=== PATIENT | male | born 1985 | race Caucasian/White ===

== ENCOUNTER 2021-06-09 12:42 | Emergency (ER) | payer SELFPAY ==
[2021-06-09 13:11] LABS: Absolute Lymphocytes (CBC) 1.5 K/uL (0.7-4.9); Basophils % 0.5 % (0-1.3); Hematocrit 40.2 % (39.6-49.0); Lymphocytes % 27.6 % (15.3-44.8); MPV 8.5 fL (7.6-11.3); RBC Red Blood Cell Count 4.63 M/uL (4.33-5.43)
[2021-06-09 13:45] LABS: Urine Blood Negative (Negative); Urine Glucose Negative (Negative); Urine Protein 1+ (Negative); Urine Specific Gravity 1.025 (1.005-1.030)
[2021-06-09 14:17] LABS: Protime INR 1.14
[2021-06-09 14:22] LABS: Barbiturates NEGATIVE (NEGATIVE); Benzodiazepines POSITIVE (NEGATIVE); Cocaine NEGATIVE (NEGATIVE); METHAMPHETAM POSITIVE (NEGATIVE); Methadone NEGATIVE (NEGATIVE); Opiates NEGATIVE (NEGATIVE); Phencyclidine NEGATIVE (NEGATIVE); THC Cannibis POSITIVE (NEGATIVE)
[2021-06-09 14:30] LABS: ALT/SGPT 24 U/L (12-78); AST/SGOT 11 U/L (15-37); Albumin 4.1 g/dL (3.4-5.0); Alkaline Phosphatase 39 U/L (45-117); BUN Blood Urea Nitrogen 13 mg/dL (7-18); Bicarbonate 29 mmol/L (21-32); Bilirubin Direct 0.1 mg/dL (0-0.2); Bilirubin Total 0.5 mg/dL (0.2-1.0); Glucose Level 95 mg/dL (74-106); Potassium 3.9 mmol/L (3.5-5.1); Protein, Total 7.9 g/dL (6.4-8.2); Sodium Level 140 mmol/L (136-145)
[2021-06-09] MEDS ORDERED: NICOTINE 21 MG/PAT TD ONE (14:58)
--- NOTE | 2021-06-09 16:37 | ER ---
Nurse's Notes [facility] Name: Lamine Reese Age: 35 yrs Sex: Male : 1985 Arrival Date: 06/09/2021 Time: 12:46 Bed 18 Private MD: Diagnosis: Drug Abuse Presentation: 06/09 12:46 Chief complaint: EMS states: the patient was found unresponsive in a hotel after ap3 snorting of what he believed to be heroin.. Upon EMS arrival patients RR was 2. Patient was given Narcan, where he became A/O X's 4 with RR within normal limits. Coronavirus screen: At this time, the client does not indicate any symptoms associated with coronavirus-19. Ebola Screen: No symptoms or risks identified at this time. Initial Sepsis Screen: Does the patient meet any 2 criteria? No. Patient's initial sepsis screen is negative. Does the patient have a suspected source of infection? No. Patient's initial sepsis screen is negative. Risk Assessment: Do you want to hurt yourself or someone else? Patient reports no desire to harm self or others. Onset of symptoms was June 09, 2021. 12:46 Method Of Arrival: EMS: [facility] ap3 12:46 Acuity: DEA 2 ap3 Triage Assessment: 12:49 General: Appears slender. General: Behavior is anxious. Pain: Denies pain. Neuro: Level ap3 of Consciousness is awake, alert, obeys commands, Oriented to person, place, time, situation, Appropriate for age Auto Body Mechanic are equal bilaterally Gait is steady, Speech is normal, Facial symmetry appears normal. Cardiovascular: Patient's skin is warm and dry. Respiratory: Airway is patent Respiratory effort is even, unlabored, Respiratory pattern is regular, symmetrical. Historical: - Allergies: 12:48 Sulfa (Sulfonamide Antibiotics); ap3 - PMHx: 12:48 Hypertensive disorder; ap3 - Immunization history:: Adult Immunizations unknown, Client reports having NOT received the Covid vaccine. - Social history:: Smoking status: Patient reports the use of cigarette tobacco products, smokes one-half pack cigarettes per day, Patient uses alcohol, street drugs, IV drugs. Screenin:49 Abuse screen: Denies threats or abuse. Nutritional screening: No deficits noted. ap3 Tuberculosis screening: No symptoms or risk factors identified. Fall Risk No fall in past 12 months (0 pts). Secondary diagnosis (15 points) ingestion of unknown street drug. IV access (20 points). Ambulatory Aid- None/Bed Rest/Nurse Assist (0 pts). Gait- Impaired (20 pts.). Mental Status- Overestimates/Forgets Limitations (15 pts.). Total Avila Fall Scale indicates High Risk Score (45 or more points). Fall prevention measures have been instituted. Side Rails Up X 2 Placed Close to Nursing Station Frequent Obs/Assessments Occuring As available patient and family educated on Fall Prevention Program and Strategies. Assessment: 12:55 General: Appears unkempt, well developed, Behavior is cooperative, appropriate for age, sl2 drowsy, Reports heroin abuse. 12:55 Pain: Denies pain. Neuro: Level of Consciousness is awake, alert, obeys commands, sl2 stuporous, Oriented to person, place, time, situation, Appropriate for age Auto Body Mechanic are equal bilaterally Moves all extremities. Gait is unsteady, Speech is slurred, Facial symmetry appears normal, Pupils are constricted, Reports taking too much heroin . Denies weakness difficulty swallowing, paresthesias numbness headache photophobia. Cardiovascular: No deficits noted. Capillary refill < 3 seconds Rhythm is sinus rhythm. Respiratory: No deficits noted. Airway is patent Trachea midline Respiratory effort is Breath sounds are clear. GI: No deficits noted. No signs and/or symptoms were reported involving the gastrointestinal system. : No deficits noted. EENT: No deficits noted. No signs and/or symptoms were reported regarding the EENT system. Derm: No deficits noted. No signs and/or symptoms reported regarding the dermatologic system. Musculoskeletal: No deficits noted. No signs and/or symptoms reported regarding the musculoskeletal system. 14:45 Reassessment: Patient offered lunch tray - sitting up in bed eating meal - tolerating sl2 well. 16:39 Reassessment: PD at the patients bedside. ap3 Vital Signs: 12:46 BP 144 / 98; Pulse 80; Resp 16; Temp 98.8(O); Pulse Ox 100% on R/A; Weight 95.25 kg; ap3 Height 6 ft. 3 in. (190.50 cm); 14:04 BP 102 / 64; Pulse 84; Resp 18; Temp 98.8; Pulse Ox 97% on R/A; sl2 14:05 BP 100 / 64; Pulse 80; Resp 20; Temp 98.7; Pulse Ox 99% on R/A; sl2 14:30 BP 124 / 82; Pulse 78; Resp 16; Temp 98.2; Pulse Ox 98% on R/A; sl2 15:30 BP 118 / 71; Pulse 79; Resp 18; Temp 98.4; Pulse Ox 99% ; sl2 12:46 Body Mass Index 26.25 (95.25 kg, 190.50 cm) ap3 ED Course: 12:46 Patient arrived in ED. ap3 12:47 Eduardo Zavala PA is PHCP. [facility] 12:47 Rancho Avilez MD is Attending Physician. [facility] 12:48 Triage completed. ap3 12:50 Arm band placed on right wrist. ap3 12:50 Patient has correct armband on for positive identification. Bed in low position. Call ap3 light in reach. Side rails up X2. monitor car operator on. Pulse ox on. NIBP on. Door closed. Noise minimized. 12:55 No provider procedures requiring assistance completed. Maintain EMS IV. Dressing sl2 intact. Site clean \T\ dry. Left A/C # 20 inserted by EMS . 13:50 Shellie Calero, ANDRES is Primary Nurse. 2 13:51 Urine Drug Screen Sent. 2 14:05 Acetaminophen Sent. 5 14:05 Basic Metabolic Panel Sent. 5 14:05 ETOH Level Sent. 5 14:05 Hepatic Function Sent. 5 14:05 PT-INR Sent. 5 14:05 Ptt, Activated Sent. 5 14:05 Salicylate Sent. 5 14:05 Initial lab(s) drawn, by ca, sent to lab. Urine collected: straight cath specimen, 5 selena colored, EKG done, by ED staff, reviewed by Rancho Avilez MD. Maintain EMS IV. Dressing intact. Good blood return noted. Site clean \T\ dry. 16:45 IV discontinued, intact, bleeding controlled, No redness/swelling at site. Pressure ap3 dressing applied. Administered Medications: 14:02 Drug: Nicotine Patch 21 mg/24 hr 1 patches Route: Transdermal; Site: anterior chest sl2 wall; Outcome: 16:36 Discharge ordered by MD. taylor 16:45 Discharged to Law Enforcement ap3 16:45 Condition: good 16:45 Discharge instructions given to police, Instructed on discharge instructions, Demonstrated understanding of instructions. 16:46 Patient left the ED. ap3 Signatures: Eduardo Zavala PA PA jmm Martinez, [facility] Wilma Luu RN RN ap3 Shellie Calero RN RN sl2
--- NOTE | 2021-06-09 16:37 | EDPHYS ---
Physician Documentation [facility] Name: Lamine Reese Age: 35 yrs Sex: Male : 1985 Arrival Date: 06/09/2021 Time: 12:46 Bed 18 Private MD: ED Physician Rancho Avilez HPI: 06/09 13:06 This 35 yrs old Male presents to ER via EMS with complaints of Heroin jmm overdose. 13:06 The patient presents with decreased responsiveness. Onset: The symptoms/episode jmm began/occurred acutely, just prior to arrival. Possible causes: drug use, narcotics. Current symptoms: In the emergency department the patient's symptoms are unchanged from the initial presentation. It is unknown whether or not the patient has had similar symptoms in the past. Patient admits to taking heroin. Given two doses of narcan. . Historical: - Allergies: 12:48 Sulfa (Sulfonamide Antibiotics); ap3 - PMHx: 12:48 Hypertensive disorder; ap3 - Immunization history:: Adult Immunizations unknown, Client reports having NOT received the Covid vaccine. - Social history:: Smoking status: Patient reports the use of cigarette tobacco products, smokes one-half pack cigarettes per day, Patient uses alcohol, street drugs, IV drugs. ROS: 13:06 Constitutional: Negative for fever, chills, and weight loss, Cardiovascular: Negative jmm for chest pain, palpitations, and edema, Respiratory: Negative for shortness of breath, cough, wheezing, and pleuritic chest pain. 13:06 All other systems are negative. Exam: 13:06 Constitutional: This is a well developed, well nourished patient who is awake, alert, jmm and in no acute distress. Head/Face: atraumatic. Eyes: EOMI, no conjunctival erythema appreciated ENT: Moist Mucus Membranes Neck: Trachea midline, Supple Chest/axilla: Normal chest wall appearance and motion. Cardiovascular: Regular rate and rhythm. No edema appreciated Respiratory: Normal respirations, no respiratory distress appreciated Abdomen/GI: Non distended, soft Back: Normal ROM Skin: General appearance color normal MS/ Extremity: Moves all extremities, no obvious deformities appreciated, no edema noted to the lower extremities Neuro: Awake and alert, normal gait Psych: Behavior is normal, Mood is normal, Patient is cooperative and pleasant Vital Signs: 12:46 BP 144 / 98; Pulse 80; Resp 16; Temp 98.8(O); Pulse Ox 100% on R/A; Weight 95.25 kg; ap3 Height 6 ft. 3 in. (190.50 cm); 14:04 BP 102 / 64; Pulse 84; Resp 18; Temp 98.8; Pulse Ox 97% on R/A; sl2 14:05 BP 100 / 64; Pulse 80; Resp 20; Temp 98.7; Pulse Ox 99% on R/A; sl2 14:30 BP 124 / 82; Pulse 78; Resp 16; Temp 98.2; Pulse Ox 98% on R/A; sl2 15:30 BP 118 / 71; Pulse 79; Resp 18; Temp 98.4; Pulse Ox 99% ; sl2 12:46 Body Mass Index 26.25 (95.25 kg, 190.50 cm) ap3 MDM: 12:53 Patient medically screened. nhan 16:20 Data reviewed: vital signs, nurses notes. Counseling: I had a detailed discussion with sarahy the patient and/or guardian regarding: the historical points, exam findings, and any diagnostic results supporting the discharge/admit diagnosis, lab results, the need for outpatient follow up, to return to the emergency department if symptoms worsen or persist or if there are any questions or concerns that arise at home. 06/09 12:48 Order name: Acetaminophen; Complete Time: 14:32 [facility] 06/09 12:48 Order name: Basic Metabolic Panel; Complete Time: 14:32 [facility] 06/09 12:48 Order name: CBC with Diff; Complete Time: 13:18 [facility] 06/09 12:48 Order name: ETOH Level; Complete Time: 14:32 [facility] 06/09 12:48 Order name: Hepatic Function; Complete Time: 14:32 [facility] 06/09 12:48 Order name: PT-INR; Complete Time: 14:22 [facility] 06/09 12:48 Order name: Ptt, Activated; Complete Time: 14:22 [facility] 06/09 12:48 Order name: Salicylate; Complete Time: 15:18 [facility] 06/09 12:48 Order name: Urine Drug Screen; Complete Time: 14:23 [facility] 06/09 12:48 Order name: EKG; Complete Time: 12:49 [facility] 06/09 12:48 Order name: EKG - Nurse/Tech; Complete Time: 13:51 [facility] 06/09 12:48 Order name: IV Saline Lock; Complete Time: 14:03 [facility] 06/09 13:46 Order name: Urine Dipstick-Ancillary; Complete Time: 13:47 [facility] 06/09 12:48 Order name: Labs collected and sent; Complete Time: 14:03 [facility] 06/09 12:48 Order name: Suicide Screening ([place]); Complete Time: 16:45 [facility] 06/09 12:48 Order name: Urine Dipstick-Ancillary (obtain specimen); Complete Time: 14:04 [facility] 06/09 13:15 Order name: Labs - recollect needed: recollect 2 greens 1 blue and red tubes; Complete bd Time: 14:04 Administered Medications: 14:02 Drug: Nicotine Patch 21 mg/24 hr 1 patches Route: Transdermal; Site: anterior chest sl2 wall; Disposition: 23:14 Co-signature as Attending Physician, Rnacho Avilez MD I agree with the assessment and nhan plan of care. Disposition Summary: 06/09/21 16:36 Discharge Ordered Location: Home [facility] Condition: Stable jm Diagnosis - Drug Abuse [facility] Followup: m - With: Private Physician - When: 2 - 3 days - Reason: Recheck today's complaints, Continuance of care, Re-evaluation by your physician Discharge Instructions: - Discharge Summary Sheet jm - Methamphetamines Use Disorder [facility] Forms: - Medication Reconciliation Form [facility] - Thank You Letter jm - Antibiotic Education jm - Prescription Opioid Use [facility] Signatures: Dispatcher [employer] Arely Lim Corey, MD MD cha Mickail, Joel, PA PA Wilma Curry, RN RN ap3 Shellie Calero RN RN sl2
[2021-06-09 16:57] VITALS: BP 118/71; TEMP 98.4; O2SAT 99
--- NOTE | 2021-06-10 13:13 | EKG ---
Test Date: 2021-06-09 Test Time: 13:47:24 Senior Security Engineer: HEATHER MEASUREMENT RESULTS: Intervals: Rate: 68 CO: 154 QRSD: 98 QT: 406 QTc: 431 Wh[place]: P: 51 CO: 154 QRS: 62 T: 68 INTERPRETIVE STATEMENTS: Normal sinus rhythm Normal ECG Compared to ECG 05/20/2015 04:02:23 Sinus tachycardia no longer present Electronically Signed On 06-10-21 13:10:34 CDT by Donnie Aviles
== END 2021-06-09 16:46 | disposition home or self-care (01) ==
LOC: ER 12:42
DX: T40.1X1A Poisoning by heroin, accidental (unintentional), initial encounter (principal); I10 Essential (primary) hypertension; F17.210 Nicotine dependence, cigarettes, uncomplicated; Z88.2 Allergy status to sulfonamides
CPT/HCPCS: 36415; 80048; 80076; 80307; 80320; 80329; 81003; 85025; 85610; 85730; 93005; 99284

== ENCOUNTER 2021-11-21 09:10 | Emergency (ER) | payer SELFPAY ==
--- NOTE | 2021-11-21 09:48 | RAD REPORT ---
EXAM DESCRIPTION: CT - Head Brain Wo Cont - 11/21/2021 9:36 am CLINICAL HISTORY: Facial trauma, blunt COMPARISON: Facial Bones W/ Mpr dated 11/21/2021 TECHNIQUE: All CT scans are performed using dose optimization technique as appropriate and may inclu de automated exposure control or mA/KV adjustment according to patient size. FINDINGS: No intracranial hemorrhage, hydrocephalus or extra-axial fluid collection.No areas of brai n edema or evidence of midline shift. The paranasal sinuses and mastoids are clear. The calvarium is intact. IMPRESSION: No acute intracranial abnormality.
--- NOTE | 2021-11-21 09:50 | RAD REPORT ---
EXAM DESCRIPTION: CT - CTFB CLINICAL HISTORY: Facial trauma, blunt COMPARISON: No comparisons TECHNIQUE: Axial 2 mm thick images of the face were obtained with sagittal and coronal reconstructio n images. All CT scans are performed using dose optimization technique as appropriate and may include automated exposure control or mA/KV adjustment according to patient size. FINDINGS: No acute facial bone fracture is seen.The mandible is intact. Remote medial orbital wall fracture. No acute orbital wall fracture. .The paranasal sinuses and masto ids are clear. IMPRESSION: Negative for facial bone fracture.
--- NOTE | 2021-11-21 09:54 | RAD REPORT ---
EXAM DESCRIPTION: RAD - Hand Right 3 View - 11/21/2021 9:48 am CLINICAL HISTORY: PAIN COMPARISON: No comparisons FINDINGS/IMPRESSION: Nondisplaced longitudinally oriented fracture of the fifth proximal phalanx. Po ssible intra-articular extension to the fifth MCP joint. Soft tissue swelling is present.
--- NOTE | 2021-11-21 09:59 | RAD REPORT ---
EXAM DESCRIPTION: RAD - Ankle Right 3 View - 11/21/2021 9:49 am CLINICAL HISTORY: PAIN COMPARISON: No comparisons FINDINGS/IMPRESSION: No acute fracture. No malalignment. No significant focal degenerative changes.
[2021-11-21] MEDS ORDERED: IBUPROFEN 400 MG TAB ONE (10:13)
[2021-11-21] MEDS ORDERED: IBUPROFEN 200 MG TAB PO ONE (10:13)
--- NOTE | 2021-11-21 11:09 | ER ---
Nurse's Notes [facility] Name: Lamine Reese Age: 36 yrs Sex: Male : 1985 Arrival Date: 11/21/2021 Time: 09:12 Bed 5 Private MD: Diagnosis: Nondisplaced fracture of proximal phalanx of right little finger, initial encounter for closed fracture;Contusion of other part of head;Pain in right ankle and joints of right foot Presentation: 11/21 09:13 Chief complaint: Patient states: pt presented to ED reporting banging head in [facility] sanchez cell, right hand injury/swollen from pushing [facility] cell and pt reported rolling right ankle. Coronavirus screen: Vaccine status: Patient reports receiving the 2nd dose of the covid vaccine. Ebola Screen: Patient denies travel to an Ebola-affected area in the 21 days before illness onset. Mechanism of Injury: resulted from banging head on [facility] cell wall and pushing [facility] cell wall. Initial Sepsis Screen: Does the patient meet any 2 criteria? No. Patient's initial sepsis screen is negative. Does the patient have a suspected source of infection? Yes:. Risk Assessment: Do you want to hurt yourself or someone else? Patient reports no desire to harm self or others. 09:13 Method Of Arrival: Law Enforcement: [facility] 09:13 Acuity: DEA 3 sanchez 09:22 Onset of symptoms was November 21, 2021. sanchez Triage Assessment: 09:19 General: Appears uncomfortable, Behavior is agitated, uncooperative. Pain: Complains of sanchez pain in frontal head, right hand and right ankle pain. Neuro: Level of Consciousness is awake, alert, Oriented to person, place, time, situation, Reports headache frontal area. Historical: - Allergies: 09:19 Sulfa (Sulfonamide Antibiotics); sanchez - PMHx: 09:19 Hypertensive disorder; sanchez - Immunization history:: Adult Immunizations up to date. - Social history:: Smoking status: Patient reports the use of cigarette tobacco products, Patient uses street drugs, marijuana. Screenin:20 Abuse screen: Denies threats or abuse. Denies injuries from another. Nutritional sanchez screening: No deficits noted. Tuberculosis screening: No symptoms or risk factors identified. Fall Risk None identified. Assessment: 11:35 General: Appears in no apparent distress. Behavior is calm, cooperative. Pain: sanchez Complains of pain in face, right hand and right ankle. Vital Signs: 09:13 BP 159 / 90; Pulse 88; Resp 18; Temp 97.6(T); Pulse Ox 100% on R/A; Weight 106.59 kg; sanchez Height 6 ft. 3 in. (190.50 cm); 09:13 Body Mass Index 29.37 (106.59 kg, 190.50 cm) sanchez Abiel Coma Score: 09:13 Eye Response: spontaneous(4). Verbal Response: oriented(5). Motor Response: obeys sanchez commands(6). Total: 15. ED Course: 09:12 Patient arrived in ED. sanchez 09:13 Sherif Carpenter NP is PHCP. pm1 09:13 Rancho Avilez MD is Attending Physician. pm1 09:18 Triage completed. sanchez 09:19 Arm band placed on. sanchez 09:20 Patient has correct armband on for positive identification. [employer]. sanchez 09:20 No provider procedures requiring assistance completed. sanchez 09:38 CT Head Brain wo Cont In Process Unspecified. EDMS 09:39 CT Facial Bones W/O Con In Process Unspecified. EDMS 09:50 Hand Right 3 View XRAY In Process Unspecified. EDMS 09:50 Ankle Right 3 View XRAY In Process Unspecified. EDMS 09:50 Foot Right 3 View XRAY In Process Unspecified. EDMS 10:08 Anel Nickerson RN is Primary Nurse. sanchez 11:08 Luis M Alvarez MD is Referral Physician. pm1 11:37 Patient did not have IV access during this emergency room visit. sacnhez Administered Medications: 10:11 Drug: Ibuprofen 600 mg Route: PO; sanchez 10:11 Follow up: Response: No adverse reaction sanchez Outcome: 11:09 Discharge ordered by . pm1 11:37 Discharged to Law Enforcement sanchez 11:37 Condition: good 11:37 Discharge instructions given to police. 11:38 Patient left the ED. sanchez Signatures: Dispatcher [employer] EDSherif Bosch NP HOSPITAL CLERK pm1 Anel Nickerson RN RN sanchez
--- NOTE | 2021-11-21 11:09 | EDPHYS ---
Physician Documentation [facility] Name: Lamine Reese Age: 36 yrs Sex: Male : 1985 Arrival Date: 11/21/2021 Time: 09:12 Bed 5 Private MD: ED Physician Rancho Avilez HPI: 11/21 09:38 This 36 yrs old Male presents to ER via Law Enforcement with complaints of Hand Pain, pm1 Head Injury-Adult, Ankle Injury. 09:38 Trauma demographics: Location of Injury: The injury occurred in his assisted cell, Date: pm1 November 21, 2021. Mechanism of injury: self inflicted. Onset: The symptoms/episode began/occurred today. Associated signs and symptoms: Pertinent negatives: LOC, neck pain. The patient has not experienced similar symptoms in the past. The patient has not recently seen a physician. Historical: - Allergies: 09:19 Sulfa (Sulfonamide Antibiotics); sanchez - PMHx: 09:19 Hypertensive disorder; sanchez - Immunization history:: Adult Immunizations up to date. - Social history:: Smoking status: Patient reports the use of cigarette tobacco products, Patient uses street drugs, marijuana. ROS: 09:38 Constitutional: Negative for fever, chills, and weight loss, Cardiovascular: Negative pm1 for chest pain, palpitations, and edema, Respiratory: Negative for shortness of breath, cough, wheezing, and pleuritic chest pain. 09:38 Skin: Negative for injury, rash, and discoloration, Neuro: Negative for headache, weakness, numbness, tingling, and seizure. 09:38 MS/extremity: Positive for pain, of the right hand, right ankle and right foot. 09:38 All other systems are negative. Exam: 09:38 Constitutional: This is a well developed, well nourished patient who is awake, alert, pm1 and in no acute distress. Head/Face: Normocephalic, atraumatic. 09:38 Cardiovascular: Exam negative for acute changes, Rate: normal, Rhythm: regular, Pulses: no pulse deficits are appreciated. 09:38 Respiratory: Exam negative for acute changes, respiratory distress, shortness of breath. 09:38 Musculoskeletal/extremity: Extremities: grossly normal except: noted in the right little finger and dorsum of right hand: swelling, tenderness, noted in the right ankle and dorsum of right foot: tenderness, swelling to lateral aspect of right ankle, no evidence of decreased ROM, deformity, ROM: no acute changes, Circulation is intact in all extremities. 09:38 Skin: Exam negative for laceration, puncture wound, Appearance: swelling, noted on the right hand and lateral aspect of right ankle, that are mild. 09:38 Neuro: Exam negative for acute changes, Orientation: is normal, Mentation: is normal, Gait: is steady, at a normal pace, without difficulty. Vital Signs: 09:13 BP 159 / 90; Pulse 88; Resp 18; Temp 97.6(T); Pulse Ox 100% on R/A; Weight 106.59 kg; sanchez Height 6 ft. 3 in. (190.50 cm); 09:13 Body Mass Index 29.37 (106.59 kg, 190.50 cm) sanchez Abiel Coma Score: 09:13 Eye Response: spontaneous(4). Verbal Response: oriented(5). Motor Response: obeys sanchez commands(6). Total: 15. MDM: 09:13 Patient medically screened. pm1 11:07 Data reviewed: vital signs. Data interpreted: Pulse oximetry: on room air is 100 %. pm1 Interpretation: normal. Counseling: I had a detailed discussion with the patient and/or guardian regarding: the historical points, exam findings, and any diagnostic results supporting the discharge/admit diagnosis, radiology results, the need for outpatient follow up, to return to the emergency department if symptoms worsen or persist or if there are any questions or concerns that arise at home. 11/21 09:14 Order name: CT Head Brain wo Cont; Complete Time: 10:15 pm1 11/21 09:15 Order name: Hand Right 3 View XRAY; Complete Time: 10:15 pm1 11/21 09:15 Order name: Ankle Right 3 View XRAY; Complete Time: 10:15 pm1 11/21 09:15 Order name: Foot Right 3 View XRAY; Complete Time: 10:15 pm11/21 09:21 Order name: CT Facial Bones W/O Con; Complete Time: 10:15 pm1 11/21 10:18 Order name: Ulnar Gutter splint; Complete Time: 11:06 pm1 11/21 11:32 Order name: Azam wrap-joint pm1 Administered Medications: 10:11 Drug: Ibuprofen 600 mg Route: PO; sanchez 10:11 Follow up: Response: No adverse reaction sanchez Disposition Summary: 11/21/21 11:09 Discharge Ordered Location: Home pm1 Problem: new pm1 Symptoms: have improved pm1 Condition: Stable pm1 Diagnosis - Nondisplaced fracture of proximal phalanx of right little finger, initial encounter pm1 for closed fracture - Contusion of other part of head pm1 - Pain in right ankle and joints of right foot pm1 Followup: pm1 - With: Emergency Department - When: As needed - Reason: Worsening of condition Followup: pm1 - With: Private Physician - When: 2 - 3 days - Reason: Recheck today's complaints, Continuance of care, Re-evaluation by your physician Followup: pm1 - With: Luis M Alvarez MD - When: 2 - 3 days - Reason: Recheck today's complaints, Continuance of care, Re-evaluation by your physician Discharge Instructions: - Discharge Summary Sheet pm1 - Contusion pm1 - Cast or Splint Care, Adult pm1 - Finger Fracture, Adult pm1 - Foot Sprain pm1 - Ankle Pain pm1 Forms: - Medication Reconciliation Form pm1 - Thank You Letter pm1 - Antibiotic Education pm1 - Prescription Opioid Use pm1 Prescriptions: - Diclofenac Sodium 75 mg Oral tablet,delayed release (DR/EC) - take 1 tablet by ORAL route 2 times per day As needed; 30 tablet; Refills: 0, pm1 Product Selection Permitted Signatures: Dispatcher [employer] Sherif Mejias NP AGILE DEVELOPER pm1 Sylvia-Anel Schmidt RN RN sanchez
[2021-11-21 11:47] VITALS: BP 159/90; TEMP 97.6; O2SAT 100
== END 2021-11-21 11:38 | disposition home or self-care (01) ==
LOC: ER 09:10
PROC: 2W3CX1Z Immobilization of Right Lower Arm using Splint (ICD-10-PCS; principal; 2021-11-21)
DX: S62.646A Nondisplaced fracture of proximal phalanx of right little finger, initial encounter for closed fracture (principal); S00.83XA Contusion of other part of head, initial encounter; M25.571 Pain in right ankle and joints of right foot; I10 Essential (primary) hypertension; Z72.0 Tobacco use; Z88.2 Allergy status to sulfonamides
CPT/HCPCS: 70450; 70486; 76377; 99283

== ENCOUNTER 2022-06-04 11:56 | Inpatient (IN) | payer SELFPAY ==
[2022-06-04] MEDS ORDERED: FUROSEMIDE 40 MG/4 ML VIAL ONE (12:22)
[2022-06-04 12:38] LABS: Absolute Lymphocytes (CBC) 1.7 K/uL (0.7-4.9); Hematocrit 40.8 % (39.6-49.0); Lymphocytes % 27.1 % (15.3-44.8); MCV 86.8 fL (80-100)
[2022-06-04 12:45] LABS: Potassium 3.5 mmol/L (3.5-5.1); Troponin High Sensitivity 38.4 pg/mL (<58.9)
--- NOTE | 2022-06-04 12:54 | RAD REPORT ---
EXAM DESCRIPTION: [place] Single View06/04/2022 12:29 pm CLINICAL HISTORY: Cough COMPARISON: none FINDINGS: The lungs appear clear of acute infiltrate. The heart is normal size IMPRESSION: No acute abnormalities displayed
--- NOTE | 2022-06-04 13:04 | EDPHYS ---
Physician Documentation [facility] Name: Lamine Reese Age: 36 yrs Sex: Male : 1985 Arrival Date: 06/04/2022 Time: 11:58 Bed 4 Private MD: ED Physician Adrian Keith HPI: 06/04 13:05 This 36 yrs old Male presents to ER via EMS with complaints of Drug Abuse, Accidental ms3 Overdose. 13:05 The patient presents to the emergency department after a known overdose, that was ms3 accidental, a result of recreational substance abuse. Context: Method: it is confirmed or suspected that the patient injected a substance, heroin, Time: just prior to arrival, Extent: Heroin, the OD/poisoning occurred at at home, and was witnessed by a friend, Previous OD/poisoning history: yes. Associated signs and symptoms: The patient has no apparent associated signs or symptoms. Severity of symptoms: At their worst the symptoms were severe in the emergency department the symptoms have resolved. 36-year-old male with past medical history of hypertension presents via [facility] for heroin overdose. EMS administered 0.5 mg Narcan in the field. EMS notes patient to have pink sputum he continues to cough up.. Historical: - Allergies: 12:13 Sulfa (Sulfonamide Antibiotics); ap3 - Home Meds: 12:13 None [Active]; ap3 - PMHx: 12:13 Hypertensive disorder; ap3 - Immunization history:: Client reports having NOT received the Covid vaccine. - Social history:: Smoking status: Patient denies any tobacco usage or history of. Patient uses IV drugs, heroin. ROS: 13:05 Constitutional: Negative for fever, and chills. ENT: Negative for injury, pain, and ms3 discharge, Neck: Negative for injury, pain, and swelling, Cardiovascular: Negative for chest pain, and palpitations. 13:05 Abdomen/GI: Negative for abdominal pain, nausea, vomiting, diarrhea, and constipation, MS/Extremity: Negative for injury and deformity, Skin: Negative for injury, rash, and discoloration, Neuro: Negative for headache, weakness, numbness, tingling. 13:05 Respiratory: Positive for cough. 13:05 All other systems are negative. Exam: 12:15 ECG was reviewed by the Attending Physician. ms3 13:05 Constitutional: This is a well developed, well nourished patient who is awake, alert, ms3 and in no acute distress. Head/Face: Normocephalic, atraumatic. Chest/axilla: Normal chest wall appearance and motion. Nontender with no deformity. Cardiovascular: Regular rate and rhythm with a normal S1 and S2. No gallops, murmurs, or rubs. Normal PMI, no JVD. No pulse deficits. 13:05 Abdomen/GI: Soft, non-tender, with normal bowel sounds. No distension or tympany. No guarding or rebound. No evidence of tenderness throughout. Skin: Warm, dry with normal turgor. Normal color with no rashes, no lesions, and no evidence of cellulitis. MS/ Extremity: Pulses equal, no cyanosis. Neurovascular intact. Full, normal range of motion. 13:05 Respiratory: mild respiratory distress is noted, Respirations: normal, Breath sounds: rales, that are mild, are scattered. Vital Signs: 11:57 BP 133 / 87; Pulse 92; Resp 12; Temp 97.8; Pulse Ox 97% on 2 lpm NC; Weight 86.18 kg; ap3 Height 5 ft. 11 in. (180.34 cm); Pain 5/10; 12:20 BP 124 / 83; Pulse 87; Resp 12; Pulse Ox 99% on 4 lpm NC; vg1 13:08 BP 133 / 83; Pulse 98; Resp 10; Pulse Ox 98% on BiPAP; ap3 14:17 BP 129 / 93; Pulse 98; Resp 16; Pulse Ox 96% on BiPAP; vg1 11:57 Body Mass Index 26.50 (86.18 kg, 180.34 cm) ap3 MDM: 11:58 Patient medically screened. ms3 13:05 Differential diagnosis: Ingestion/exposure to Heroin hypoglycemia, Pulmonary edema. ms3 Data reviewed: vital signs, nurses notes, lab test result(s), EKG, radiologic studies, and as a result, I will admit patient. Data interpreted: monitoring specialist: rate is 90 beats/min, rhythm is normal sinus rhythm, with no ectopy, Interpretation: normal rate, normal rhythm. Counseling: I had a detailed discussion with the patient and/or guardian regarding: the historical points, exam findings, and any diagnostic results supporting the discharge/admit diagnosis, lab results, radiology results, the need for further work-up and treatment in the hospital. ED course: Discussed case with Dr. Rollins and he accepts patient. All questions were answered. Discussed plan for admission with patient and he understands and agrees with plan. 06/04 12:00 Order name: Basic Metabolic Panel; Complete Time: 12:56 ms3 06/04 12:00 Order name: CBC with Diff; Complete Time: 12:56 ms3 06/04 12:00 Order name: NT PRO-BNP; Complete Time: 12:56 ms3 06/04 12:00 Order name: Troponin HS; Complete Time: 12:56 ms3 06/04 12:43 Order name: SARS RAPID; Complete Time: 13:34 ap3 06/04 15:04 Order name: CBC with Automated Diff EDMS 06/04 12:00 Order name: XRAY Chest (1 view); Complete Time: 12:56 ms3 06/04 12:27 Order name: BIPAP ms3 06/04 15:04 Order name: CBC with Automated Diff EDMS 06/04 15:04 Order name: Comprehensive Metabolic Panel EDMS 06/04 15:04 Order name: Comprehensive Metabolic Panel EDMS 06/04 15:04 Order name: Magnesium EDMS 06/04 15:04 Order name: Magnesium EDMS 06/04 15:04 Order name: Chest Single View EDMS 06/04 12:00 Order name: EKG; Complete Time: 12:01 ms3 06/04 12:00 Order name: Cardiac monitoring; Complete Time: 12:19 ms3 06/04 12:00 Order name: EKG - Nurse/Tech; Complete Time: 12:19 ms3 06/04 12:00 Order name: IV Saline Lock; Complete Time: 12:19 ms3 06/04 12:00 Order name: Labs collected and sent; Complete Time: 12:19 ms3 06/04 12:00 Order name: O2 Per Protocol; Complete Time: 12:19 ms3 06/04 12:00 Order name: O2 Sat Monitoring; Complete Time: 12:19 ms3 06/04 15:04 Order name: Full Liquid EDMS 06/04 15:04 Order name: Chest Single View EDMS 06/04 15:11 Order name: Chest Single View; Complete Time: 18:20 EDMS EC:15 Rate is 84 beats/min. Rhythm is regular. QRS [place] is Normal. MT interval is normal. QRS ms3 interval is normal. Clinical impression: Normal ECG. Interpreted by me. Reviewed by me. Administered Medications: 12:26 Drug: Lasix (furosemide) 40 mg Route: IVP; Site: right antecubital; ap3 13:06 Follow up: Response: No adverse reaction ap3 Disposition Summary: 06/04/22 13:03 Hospitalization Ordered Hospitalization Status: Inpatient Admission ms3 Provider: Ruslan Rollins ms3 Condition: Stable ms3 Problem: new ms3 Symptoms: are unchanged ms3 Bed/Room Type: Standard ms3 Location: Telemetry/MedSurg (Inpatient)(06/04/22 22:33) cg Room Assignment: [facility](06/04/22 22:33) Diagnosis - Heroin overdose ms3 - Acute pulmonary edema ms3 - Acute respiratory failure ms3 Forms: - Medication Reconciliation Form ms3 - SBAR form ms3 Critical care time excluding procedures: 14:01 Critical care time: Bedside Care: 45 minutes. Total time: 45 minutes ms3 Signatures: Dispatcher [employer] Delmis Rios, RN RN cg Wilma Luu RN RN ap3 Karime Baptiste Marcus, DO DO ms3 Corrections: (The following items were deleted from the chart) 13:45 13:03 Intensive Care Unit ms3 eb 13:45 13:03 ms3 eb 13:45 13:45 [facility] ER HOLD eb eb 13:45 13:45 ERHOLD- eb eb 15:04 13:45 Intensive Care Unit eb eb 15:04 13:45 eb eb 22:33 15:04 [facility] ER HOLD eb cg 22:33 15:04 ERHOLD- eb cg
--- NOTE | 2022-06-04 13:04 | ER ---
Nurse's Notes [facility] Name: Lamine Reese Age: 36 yrs Sex: Male : 1985 Arrival Date: 06/04/2022 Time: 11:58 Bed 4 Private MD: Diagnosis: Heroin overdose;Acute pulmonary edema;Acute respiratory failure Presentation: 06/04 11:57 Chief complaint: EMS states: they were called out to a witnessed heroin overdose where ap3 the patient went unconscious and turned blue. EMS administered 0.5mg Narcan on scene and patient became responsive at that time and removed his IV. Patient complains of mild chest discomfort and left upper quadrant abdominal pain. Coronavirus screen: At this time, the client does not indicate any symptoms associated with coronavirus-19. Ebola Screen: No symptoms or risks identified at this time. Initial Sepsis Screen: Does the patient meet any 2 criteria? No. Patient's initial sepsis screen is negative. Does the patient have a suspected source of infection? No. Patient's initial sepsis screen is negative. Risk Assessment: Do you want to hurt yourself or someone else? Patient reports no desire to harm self or others. Onset of symptoms was June 04, 2022 at 11:30. Care prior to arrival: Medication(s) given: 0.5 Narcan IV IV initiated. 22 GA, in the right wrist, patient removed [employer]UM[employer] MGR. 11:57 Method Of Arrival: EMS: [facility] ap3 11:57 Acuity: DEA 2 ap3 Triage Assessment: 12:13 General: Appears distressed, Behavior is calm, cooperative. Pain: Complains of pain in ap3 chest and left upper quadrant. Neuro: Jacobson Agitation-Sedation Scale (RASS): -1 Drowsy Level of Consciousness is awake, Oriented to person, place, time, situation. Cardiovascular: Patient's skin is warm and dry. Respiratory: Airway is patent Respiratory effort is even, unlabored. Historical: - Allergies: 12:13 Sulfa (Sulfonamide Antibiotics); ap3 - Home Meds: 12:13 None [Active]; ap3 - PMHx: 12:13 Hypertensive disorder; ap3 - Immunization history:: Client reports having NOT received the Covid vaccine. - Social history:: Smoking status: Patient denies any tobacco usage or history of. Patient uses IV drugs, heroin. Screenin:14 Abuse screen: Denies threats or abuse. Nutritional screening: No deficits noted. ap3 Tuberculosis screening: No symptoms or risk factors identified. 12:23 Fall Risk No fall in past 12 months (0 pts). No secondary diagnosis (0 pts). IV access vg1 (20 points). Ambulatory Aid- None/Bed Rest/Nurse Assist (0 pts). Gait- Weak (10 pts.). Mental Status- Oriented to own ability (0 pts). Total Avila Fall Scale indicates Low Risk Score (25-44 pts). Fall prevention measures have been instituted. Side Rails Up X 2 Placed close to Nursing Station As available Patient and Family Educated on Fall Prevention Program and strategies. Assessment: 12:00 General: Appears uncomfortable, Behavior is cooperative. Pain: Complains of pain in vg1 left upper quadrant Pain currently is 5 out of 10 on a pain scale. Neuro: Level of Consciousness is awake, alert, obeys commands, Oriented to person, place, time, situation. Cardiovascular: Heart tones S1 S2 Capillary refill < 3 seconds in bilateral fingers Rhythm is regular. Respiratory: Airway is patent Respiratory effort is even, unlabored, Sputum is blood streaked. GI: Patient currently denies nausea, vomiting. : No signs and/or symptoms were reported regarding the genitourinary system. EENT: No signs and/or symptoms were reported regarding the EENT system. Derm: Skin is diaphoretic, Skin is pink. Musculoskeletal: Circulation, motion, and sensation intact. 12:00 Reassessment: Pt stated would like help for drug abuse; provider notified. vg1 12:21 Reassessment: Respiratory at bedside. vg1 12:29 Respiratory: Patient placed on BiPAP: Inspiratory Pressure: 12 Expiratory (EPAP) vg1 Pressure: 5 FiO2%: 40 Respiratory Rate: 16. 13:08 Reassessment: Patient and/or family updated on plan of care and expected duration. Pain ap3 level reassessed. Patient is alert, oriented x 3, equal unlabored respirations, skin warm/dry/pink. provider at bedside discussing current plan of care. patient verbalized understanding at this time. 14:17 Reassessment: Patient appears in no apparent distress at this time. No changes from vg1 previously documented assessment. Patient is alert, oriented x 3, equal unlabored respirations, skin warm/dry/pink. Patient denies pain at this time. 15:52 Reassessment: No changes from previously documented assessment. Patient and/or family ap3 updated on plan of care and expected duration. Pain level reassessed. Patient is alert, oriented x 3, equal unlabored respirations, skin warm/dry/pink. pt awake and asking for water. 19:35 General: Behavior is agitated, Patient requested something to drink. Water brought to tw5 the patient. Patient stated " What the fuck is this, just a cup of water, I am fucking hot in here. Seriously what the fuck is this." Nursing staff asked patient to speak more kindly and what else he would like. Soda with ice brought to patient. 20:21 General: patient provided sandwich. tw5 Vital Signs: 11:57 BP 133 / 87; Pulse 92; Resp 12; Temp 97.8; Pulse Ox 97% on 2 lpm NC; Weight 86.18 kg; ap3 Height 5 ft. 11 in. (180.34 cm); Pain 5/10; 12:20 BP 124 / 83; Pulse 87; Resp 12; Pulse Ox 99% on 4 lpm NC; vg1 13:08 BP 133 / 83; Pulse 98; Resp 10; Pulse Ox 98% on BiPAP; ap3 14:17 BP 129 / 93; Pulse 98; Resp 16; Pulse Ox 96% on BiPAP; vg1 11:57 Body Mass Index 26.50 (86.18 kg, 180.34 cm) ap3 ED Course: 11:58 Patient arrived in ED. ms3 11:59 Radha Sam RN is Primary Nurse. vg1 11:59 Adrian Keith DO is Attending Physician. ms3 12:13 Triage completed. ap3 12:23 Arm band placed on. vg1 12:23 Patient has correct armband on for positive identification. Bed in low position. Call vg1 light in reach. Side rails up X2. Client placed on continuous cardiac and pulse oximetry monitoring. NIBP monitoring applied. 12:23 Inserted saline lock: 20 gauge in right antecubital area, using aseptic technique. vg1 ,using aseptic technique. completed by Wilma CAMPOS. 12:31 XRAY Chest (1 view) In Process Unspecified. EDMS 13:02 Ruslan Rollins MD is Hospitalizing Provider. ms3 13:06 SARS RAPID Sent. ap3 16:27 No provider procedures requiring assistance completed. Patient admitted, IV remains in ap3 place. 20:35 Primary Nurse role handed off by Radha Sam RN mw2 22:14 Rafia Payton is Primary Nurse. tw5 Administered Medications: 12:26 Drug: Lasix (furosemide) 40 mg Route: IVP; Site: right antecubital; ap3 13:06 Follow up: Response: No adverse reaction ap3 Medication: 12:24 VIS not applicable for this client. vg1 Outcome: 13:03 Decision to Hospitalize by Provider. ms3 16:27 Admitted to ER Hold. Please see [facility] for further documentation. ap3 16:27 Condition: good 16:27 Instructed on the need for admit. 22:14 Admitted to Med/surg room 214, Report called to attempted to call report to ayala tw5 22:32 Admitted to Med/surg accompanied by nurse, accompanied by tech, with chart, Report tw5 called to Report called to Ayala. Patient transported in hospital bed. 22:40 Patient left the ED. as6 Signatures: Dispatcher [employer] EDMS Wilma Luu, RN RN ap3 Humphrey Garcia mw2 Radha Sam, RN RN vg1 Adrian Keith, DO ms3 Rafia Payton tw5 Sameer Luo RN RN as6 Corrections: (The following items were deleted from the chart) 13:08 13:08 BP 133 / 83; Pulse 105bpm; Resp 10bpm; Pulse Ox 98% BiPAP; ap3 ap3
[2022-06-04 13:21] LABS: SARS-CoV-2 Antigen Rapid Res Negative (Negative)
[2022-06-04] MEDS ORDERED: ONDANSETRON 4 MG/2 ML VIAL IV PRN (14:59)
[2022-06-04] MEDS ORDERED: ACETAMINOPHEN 500 MG TAB PO PRN (14:59)
[2022-06-04] MEDS ORDERED: LORazepam 2 MG/ML VIAL IV PRN (15:12)
[2022-06-04 16:07] VITALS: BMI 33.5
--- NOTE | 2022-06-04 18:11 | RAD REPORT ---
EXAM DESCRIPTION: RAD - Chest Single View - 06/04/2022 6:02 pm CLINICAL HISTORY: f/u pulm edema COMPARISON: Chest Single View dated 06/04/2022 FINDINGS: Lines: None. Lungs: No evidence of edema or pneumonia. Pleural: No significant pleural effusions or pneumothorax. Cardiac: The heart size is within normal limits. Mediastinum: Within normal limits. Bones: No acute fractures. Other: None IMPRESSION: No acute cardiopulmonary disease.
--- NOTE | 2022-06-04 20:35 | P.HP ---
Certification for Inpatient Patient admitted to: Observation With expected LOS: <2 Midnights Practitioner: I am a practitioner with admitting privileges, knowledge of patient current condition, hospital course, and medical plan of care. Services: Services provided to patient in accordance with Admission requirements found in Title 42 Section 412.3 of the Code of Federal Regulations Patient History Date of Service: 06/04/22 Reason for admission: heroin overdose, respiratory failure History of Present Illness: 36yo M, PMH: HTN Brought to ED by EMS after witness overdose with heroin. Patient reportedly became unconscious and turned blue. EMS administered 0.5mg Narcan on scene and patient became responsive, removed IV. In the ED, patient reported LUQ abd pain. He was noted to be coughing with frothy blood tinged sputum. He was placed on BIPAP for concern of acute pulmonary edema following naracan administration. Initial CXR was clear. Labs ok. Patient awake with some somnolence. States he used meth as well. Denies SI ED physician requests admission due to pulmonary edema. Allergies Sulfa (Sulfonamide Antibiotics) Allergy (Unverified 11/05/14 09:55) Unknown - Past Medical/Surgical History -: HTN Past Surgical History: Patient denies surgical history - Family History Family History: Reviewed- Non-Contributory - Social History Smoking Status: Unknown if ever smoked CD- Drugs: Yes Place of Residence: Home Review of Systems 10-point ROS is otherwise unremarkable Physical Examination - Vital Signs Temperature: 98.7 F Blood Pressure: 126/83 Pulse: 88 Respirations: 14 Pulse Ox (%): 98 - Physical Exam General: Oriented x3, Other (somnolent) HEENT: EOMI, Sclerae nonicteric Neck: Supple, No LAD Respiratory: Clear to auscultation bilaterally, Normal air movement, Other (on BIPAP) Cardiovascular: No edema, Regular rate/rhythm Gastrointestinal: Soft and benign, Non-distended, Tenderness (LUQ) Musculoskeletal: No swelling, No erythema Integumentary: No rashes, No significant lesion Neurological: Normal speech, Normal strength at 5/5 x4 extr - Studies Laboratory Data (last 24 hrs) 06/04/22 12:18: WBC 6.20, Hgb 14.2, Hct 40.8, Plt Count 239 06/04/22 12:18: Sodium 139, Potassium 3.5, BUN 14, Creatinine 1.19, Glucose 138 H Assessment and Plan - Advance Directives Does patient have a Living Will: No Does patient have a Durable POA for Healthcare: No Physician Review Additional Text: Problem List Pulmonary edema, respiratory failure Heroin overdose, s/p narcan heroin and methamphetamine use HTN Patient reportedly had respiratory distress/failure, placed on BIPAP with frothy blood tinged sputum, ED physician concerned for acute pulmonary edema continue BIPAP for now, wean O2 as tolerated repeat CXR later this evening wean O2 as tolerated liquid diet for now, advance as tolerated monitor for withdrawal symptoms ativan PRN monitor in ICU overnight VTE: lovenox Code: Full Dispo: home, ~1-2 days Time Spent Managing Pts Care (In Minutes): 65
[2022-06-04 23:22] VITALS: O2SAT 96
--- NOTE | 2022-06-05 07:28 | RAD REPORT ---
EXAM DESCRIPTION: RAD - Chest Single View - 06/05/2022 7:05 am CLINICAL HISTORY: pulm edema COMPARISON: Portable June 04 TECHNIQUE: AP portable chest image was obtained 06/05/2022 7:05 am . FINDINGS: No new mass consolidation. Lung markings are accentuated slightly due to shallow inspirati on. No significant pulmonary edema, failure or volume overload finding. Hilar regions are stable from prior imaging. Heart and vasculature are normal. No measurable pleural effusion and no pneumothorax. No acute bony abnormality seen. No acute aortic findings suspected. IMPRESSION: No new or progressive cardiopulmonary finding.
[2022-06-05] MEDS ORDERED: ENOXAPARIN 40 MG/0.4 ML SQ SCH (09:00)
[2022-06-05 09:28] LABS: Absolute Lymphocytes (CBC) 1.7 K/uL (0.7-4.9); Hematocrit 38.8 % (39.6-49.0); Lymphocytes % 25.6 % (15.3-44.8); MCV 87.4 fL (80-100); MPV 9.1 fL (7.6-11.3); RBC Red Blood Cell Count 4.45 M/uL (4.33-5.43)
[2022-06-05 09:37] LABS: Albumin 3.1 g/dL (3.4-5.0); Bilirubin Total 0.4 mg/dL (0.2-1.0); Magnesium 2.1 mg/dL (1.8-2.4); Potassium 3.5 mmol/L (3.5-5.1); Protein, Total 6.3 g/dL (6.4-8.2)
--- NOTE | 2022-06-05 11:34 | P.DS ---
Admission Date: 06/04/22 Discharge Date: 06/05/22 Disposition: ROUTINE DISCHARGE Discharge Condition: GOOD Reason for Admission: heroin overdose, respiratory failure Brief History of Present Illness: 36yo M, PMH: HTN Brought to ED by EMS after witness overdose with heroin. Patient reportedly became unconscious and turned blue. EMS administered 0.5mg Narcan on scene and patient became responsive, removed IV. In the ED, patient reported LUQ abd pain. He was noted to be coughing with frothy blood tinged sputum. He was placed on BIPAP for concern of acute pulmonary edema following naracan administration. Initial CXR was clear. Labs ok. Patient awake with some somnolence. States he used meth as well. Denies SI ED physician requests admission due to pulmonary edema. Hospital Course: Problem List Pulmonary edema Heroin overdose, s/p narcan heroin and methamphetamine use HTN Patient was brought to ED after witnessed overdose of heroin. He became unresponsive and "turned blue". EMS arrived and administered narcan. Patient became more responsive and slightly agitated. On arrival to the ED, he was noted to have some pink frothy sputum and there was concern for pulmonary edema. He received IV lasix and placed on BIPAP. Initial Chest x-ray was negative for any acute process, and subsequent chest x-rays remained clear. He was weaned off BIPAP to room air without difficulty. He reported substernal chest pain, which had some tenderness/reproducibility on exam. Troponins were negative, EKG without ischemic findings. This pain is musculoskeletal. Uncertain if he received chest compressions. He was monitored overnight without issues. He did initially refuse labwork in the morning, but was agreeable to get them done later in the day. These results within normal limits. Stable for discharge home Continue prior home medications as prescribed. No new medications Follow up: PCP within 3-5 days Discussed abstinence from street drugs and risk on his life. Vital Signs/Physical Exam: Temp Pulse Resp BP Pulse Ox 98.1 F 70 16 140/78 96 06/05/22 08:00 06/05/22 08:00 06/05/22 08:00 06/05/22 08:00 06/05/22 08:00 General: Alert, In no apparent distress, Oriented x3 HEENT: EOMI, Sclerae nonicteric Neck: Supple, No LAD Respiratory: Clear to auscultation bilaterally, Normal air movement Cardiovascular: No edema, Regular rate/rhythm Gastrointestinal: Soft and benign, Non-distended, Tenderness (mild epigastrium) Musculoskeletal: No swelling, Tenderness (along lower sternum) Integumentary: No rashes, No significant lesion Neurological: Normal speech, Normal strength at 5/5 x4 extr, Normal affect Laboratory Data at Discharge: WBC 6.50 K/uL (4.3-10.9) 06/05/22 09:12 Hgb 13.4 g/dL (13.6-17.9) L 06/05/22 09:12 Hct 38.8 % (39.6-49.0) L 06/05/22 09:12 Plt Count 208 K/uL (152-406) 06/05/22 09:12 Sodium 138 mmol/L (136-145) 06/05/22 09:12 Potassium 3.5 mmol/L (3.5-5.1) 06/05/22 09:12 BUN 16 mg/dL (7-18) 06/05/22 09:12 Creatinine 1.04 mg/dL (0.55-1.3) 06/05/22 09:12 Glucose 118 mg/dL (74-106) H 06/05/22 09:12 Magnesium 2.1 mg/dL (1.8-2.4) 06/05/22 09:12 Total Bilirubin 0.4 mg/dL (0.2-1.0) 06/05/22 09:12 AST 14 U/L (15-37) L 06/05/22 09:12 ALT 27 U/L (12-78) 06/05/22 09:12 Alkaline Phosphatase 32 U/L (45-117) L 06/05/22 09:12 Home Medications: Lisinopril [Zestril] 20 mg PO DAILY 06/04/22 Omeprazole 20 mg PO BID 06/04/22 Physician Discharge Instructions: Patient was brought to ED after witnessed overdose of heroin. He became unresponsive and "turned blue". EMS arrived and administered narcan. Patient became more responsive and slightly agitated. On arrival to the ED, he was noted to have some pink frothy sputum and there was concern for pulmonary edema. He received IV lasix and placed on BIPAP. Initial Chest x-ray was negative for any acute process, and subsequent chest x-rays remained clear. He was weaned off BIPAP to room air without difficulty. He reported substernal chest pain, which had some tenderness/reproducibility on exam. Troponins were negative, EKG without ischemic findings. This pain is musculoskeletal. Uncertain if he received chest compressions. He was monitored overnight without issues. He did initially refuse labwork in the morning, but was agreeable to get them done later in the day. These results within normal limits. Stable for discharge home Continue prior home medications as prescribed. No new medications Follow up: PCP within 3-5 days Discussed abstinence from street drugs and risk on his life. Time spent managing pt's care (in minutes): 45
[2022-06-05 12:40] VITALS: BP 142/66; TEMP 97.7
--- NOTE | 2022-06-07 16:04 | EKG ---
Test Date: 2022-06-05 Test Time: 09:18:22 Order Selector: Johnnie LATIF MEASUREMENT RESULTS: Intervals: Rate: 84 MO: 152 QRSD: 88 QT: 376 QTc: 444 [place]: P: 65 MO: 152 QRS: 69 T: 101 INTERPRETIVE STATEMENTS: Normal sinus rhythm Nonspecific ST and T wave abnormality Abnormal ECG Compared to ECG 06/04/2022 12:15:26 ST (T wave) deviation now present Electronically Signed On 06-07-22 15:59:10 CDT by Jose Jimenez
--- NOTE | 2022-06-07 16:04 | EKG ---
Test Date: 2022-06-05 Test Time: 09:19:02 Shop And Alteration Tailor: Johnnie LATIF MEASUREMENT RESULTS: Intervals: Rate: 86 ID: [id number] QRSD: 90 QT: 380 QTc: 454 [place]: P: 65 ID: [id number] QRS: 69 T: 101 INTERPRETIVE STATEMENTS: Normal sinus rhythm Nonspecific T wave abnormality Abnormal ECG Compared to ECG 06/05/2022 09:18:22 T-wave abnormality now present ST (T wave) deviation no longer present Electronically Signed On 06-07-22 15:59:09 CDT by Jose Jimenez
--- NOTE | 2022-06-07 16:08 | EKG ---
Test Date: 2022-06-04 Test Time: 12:15:26 [employer] Logger: MEASUREMENT RESULTS: Intervals: Rate: 84 LA: 146 QRSD: 88 QT: 360 QTc: 425 [place]: P: 66 LA: 146 QRS: 73 T: 89 INTERPRETIVE STATEMENTS: Normal sinus rhythm Normal ECG Compared to ECG 06/09/2021 13:47:24 No significant changes Electronically Signed On 06-07-22 16:01:00 CDT by oJse Jimenez
== END 2022-06-05 14:00 | disposition home or self-care (01) | DRG 917 ==
LOC: ER 11:56 → ERHOLD 14:58 → 2ND 22:17
PROVIDERS: ADMIT Hospitalist; ATTEND Hospitalist
PROC: 5A09357 Assistance with Respiratory Ventilation, Less than 24 Consecutive Hours, Continuous Positive Airway Pressure (ICD-10-PCS; principal; 2022-06-04)
DX: T40.1X1A Poisoning by heroin, accidental (unintentional), initial encounter (principal); J81.0 Acute pulmonary edema; J96.00 Acute respiratory failure, unspecified whether with hypoxia or hypercapnia; I10 Essential (primary) hypertension; F11.10 Opioid abuse, uncomplicated; Z88.1 Allergy status to other antibiotic agents; Z28.310 Unvaccinated for COVID-19; Z20.822 Contact with and (suspected) exposure to COVID-19
CPT/HCPCS: 36415; 71045; 80048; 80053; 83735; 83880; 84484; 85025; 87811; 93005; 94660; 96374; 99285; J1650; J1940

== ENCOUNTER 2022-08-17 16:22 | Emergency (ER) | payer SELFPAY ==
--- NOTE | 2022-08-17 18:02 | ER ---
Nurse's Notes [facility] Name: Lamine Reese Age: 37 yrs Sex: Male : 1985 Arrival Date: 08/17/2022 Time: 16:25 Bed IW1 Private MD: Diagnosis: Chest pain, unspecified Presentation: 08/17 16:48 Chief complaint: Patient states: CP for 1 day. Got aspirin 324 mg PO and 1 notro en ll1 route. CP gone now. Slight RAMON now. Out of lisinopril for 2 months. EMS states: VSS. Coronavirus screen: Vaccine status: Patient reports receiving the 2nd dose of the covid vaccine. Client denies travel out of the [place] in the last 14 days. At this time, the client does not indicate any symptoms associated with coronavirus-19. Ebola Screen: Patient denies travel to an Ebola-affected area in the 21 days before illness onset. Initial Sepsis Screen: Does the patient meet any 2 criteria? No. Patient's initial sepsis screen is negative. Does the patient have a suspected source of infection? No. Patient's initial sepsis screen is negative. Risk Assessment: Do you want to hurt yourself or someone else? Patient reports no desire to harm self or others. Onset of symptoms was August 17, 2022. 16:48 Method Of Arrival: Ambulatory ll1 16:48 Acuity: DEA 3 ll1 Historical: - Allergies: 16:50 Sulfa (Sulfonamide Antibiotics); ll1 - PMHx: 16:50 Hypertensive disorder; ll1 - PSHx: 16:50 None; ll1 - Immunization history:: Client reports receiving the 2nd dose of the Covid vaccine. - Social history:: Smoking status: Patient denies any tobacco usage or history of. Assessment: 17:49 Reassessment: called patient to have labs drawn, no answer. Unable to locate patient. XRAY techs also attempting to locate patient and have not had any success. Registration staff said that when patient was seen going in and out of ED. Called patients name outside of ER entrance. No answer. 17:56 Reassessment: Attempted to call patient for lab draw/ XRAY. No answer. Unable to locate ss patient. JESSENIA Parish notified. Vital Signs: 16:48 BP 133 / 96; Pulse 89; Resp 17; Temp 98.4; Pulse Ox 100% ; Pain 3/10; ll1 ED Course: 16:25 Patient arrived in ED. as 16:48 Sherif Carpenter [facility] pm1 16:48 Lesly Hutchins MD is Attending Physician. pm1 16:50 Triage completed. ll1 16:51 Rancho Ansari PA is [facility]. cp 16:51 Lesly Hutchins MD is Attending Physician. cp 17:51 Radiology exam delayed due to PT NOT FOUND IN [facility] WHEN CALLED FOR. rs4 17:58 Patient did not have IV access during this emergency room visit. ss Administered Medications: No medications were administered Medication: 17:49 VIS not applicable for this client. ss Outcome: 17:58 Eloped from waiting room. ss 17:58 unknown 17:58 Discharge instructions given to Pt left prior to receiving instructions 18:01 Discharge ordered by . cp 18:10 Patient left the ED. ss Signatures: Alta Forbes Shelby, RN RN Rancho Ansari PA PA cp Sherif Carpenter NP [facility] pm1 Rock Genao RN RN ll1 Celina Brizuela rs4 Corrections: (The following items were deleted from the chart) 16:50 16:48 BP 139 / 100; Pulse 89bpm; Resp 17bpm; Pulse Ox 100%; Temp 98.4F; Pain 3/10; ll1 ll1 17:58 17:56 Reassessment: Attempted to call patient for lab draw/ XRAY. No answer. Unable to ss locate patient. ss
--- NOTE | 2022-08-17 18:02 | EDPHYS ---
Physician Documentation [facility] Name: Lamine Reese Age: 37 yrs Sex: Male : 1985 Arrival Date: 08/17/2022 Time: 16:25 Bed IW1 Private MD: ED Physician Lesly Hutchins HPI: 08/17 16:55 This 37 yrs old Male presents to ER via Ambulatory with complaints of Chest Pain. cp 16:55 The patient or guardian reports chest pain that is located primarily in the anterior cp chest wall, left. 16:55 The pain does not radiate. Associated signs and symptoms: Pertinent negatives: cp abdominal pain, cough, diaphoresis, lower extremity pain, lower extremity swelling, shortness of breath, syncope. 16:55 The chest pain is described as sharp. Duration: The patient or guardian reports a cp single episode, that is now resolved. EMS care prior to arrival includes: aspirin, nitroglycerin, x 1. 16:55 Patient reports using methamphetamine 2 days ago. cp Historical: - Allergies: 16:50 Sulfa (Sulfonamide Antibiotics); ll1 - PMHx: 16:50 Hypertensive disorder; ll1 - PSHx: 16:50 None; ll1 - Immunization history:: Client reports receiving the 2nd dose of the Covid vaccine. - Social history:: Smoking status: Patient denies any tobacco usage or history of. ROS: 17:00 Constitutional: Negative for body aches, chills, fever, poor PO intake. cp 17:00 Cardiovascular: Positive for chest pain, Negative for edema, palpitations. cp 17:00 Respiratory: Negative for cough, shortness of breath, wheezing. 17:00 Abdomen/GI: Negative for abdominal pain, nausea, vomiting, and diarrhea. 17:00 Eyes: Negative for injury, pain, redness, and discharge. cp 17:00 ENT: Negative for drainage from ear(s), ear pain, sore throat, difficulty swallowing, difficulty handling secretions. 17:00 Back: Negative for pain at rest, pain with movement. 17:00 Neuro: Negative for altered mental status, dizziness, headache, numbness, weakness. 17:00 All other systems are negative. cp Exam: 17:03 Constitutional: The patient appears in no acute distress, alert, awake, cp non-diaphoretic, non-toxic, well developed, well nourished. 17:03 Head/Face: Normocephalic, atraumatic. cp 17:03 Eyes: Periorbital structures: appear normal, Conjunctiva: normal, no exudate, no injection, Sclera: no appreciated abnormality, Lids and lashes: appear normal, bilaterally. 17:03 ENT: External ear(s): are unremarkable, Nose: is normal, Mouth: Lips: moist, Oral mucosa: pink and intact, moist, Posterior pharynx: Airway: no evidence of obstruction, patent. 17:03 Chest/axilla: Inspection: normal, Palpation: is normal, no crepitus, no tenderness. 17:03 Cardiovascular: Rate: normal, Rhythm: regular, Heart sounds: murmur, not appreciated, Edema: is not appreciated, JVD: is not appreciated. 17:03 Respiratory: the patient does not display signs of respiratory distress, Respirations: normal, no use of accessory muscles, no retractions, labored breathing, is not present, Breath sounds: are clear throughout, no decreased breath sounds, no stridor, no wheezing. 17:03 Abdomen/GI: Inspection: abdomen appears normal, Palpation: abdomen is soft and non-tender, in all quadrants. 17:03 Back: pain, is absent, ROM is normal. 17:03 Neuro: Orientation: to person, place \T\ time. Mentation: is normal, Motor: moves all fours, strength is normal, Sensation: is normal. Vital Signs: 16:48 BP 133 / 96; Pulse 89; Resp 17; Temp 98.4; Pulse Ox 100% ; Pain 3/10; ll1 MDM: 17:00 Differential diagnosis: abnormal EKG, acute myocardial infarction, acute pericarditis, cp anxiety, pericarditis, pleurisy, pneumonia, pneumothorax. 17:40 Patient medically screened. 18:00 Data reviewed: vital signs, nurses notes. 18:00 ED course: Patient left ED after interview and exam by me and prior to blood work, EKG cp and chest xray. Patient may return at any time for reevaluation. 08/17 16:51 Order name: Cardiac monitoring 08/17 16:51 Order name: EKG - Nurse/Tech 08/17 16:51 Order name: IV Saline Lock 08/17 16:51 Order name: Labs collected and sent 08/17 16:51 Order name: O2 Per Protocol cp 08/17 16:51 Order name: O2 Sat Monitoring cp Administered Medications: No medications were administered Disposition Summary: 08/17/22 18:01 Discharge Ordered Location: Home cp Problem: new cp Symptoms: have improved cp Condition: Stable cp Diagnosis - Chest pain, unspecified cp Followup: cp - With: Private Physician - When: 1 - 2 days - Reason: Recheck today's complaints Discharge Instructions: - Discharge Summary Sheet cp - Nonspecific Chest Pain, Adult cp Forms: - Medication Reconciliation Form cp - Thank You Letter cp - Antibiotic Education cp - Prescription Opioid Use cp Signatures: Dispatcher [employer] EDMS Rancho Ansari PA PA cp Lewis, Lynsay RN RN ll1
[2022-08-17 18:20] VITALS: BP 133/96; TEMP 98.4; O2SAT 100
== END 2022-08-17 18:10 | disposition home or self-care (01) ==
LOC: ER 16:22
DX: R07.89 Other chest pain (principal); I10 Essential (primary) hypertension; Z88.2 Allergy status to sulfonamides
CPT/HCPCS: 99281

== ENCOUNTER 2022-10-18 02:47 | Emergency (ER) | payer SELFPAY ==
[2022-10-18] MEDS ORDERED: NA CHLORIDE 0.9% 1,000 ML ONE (03:18)
[2022-10-18 03:22] LABS: Absolute Lymphocytes (CBC) 2.5 K/uL (0.7-4.9); Hematocrit 38.7 % (39.6-49.0); Lymphocytes % 32.7 % (15.3-44.8); MCV 84.2 fL (80-100); MPV 8.7 fL (7.6-11.3)
[2022-10-18 03:24] LABS: Protime INR 1.08
[2022-10-18 03:34] LABS: ALT/SGPT 19 U/L (16-61); AST/SGOT 14 U/L (15-37); Albumin 3.7 g/dL (3.4-5.0); Alkaline Phosphatase 43 U/L (45-117); BUN Blood Urea Nitrogen 18 mg/dL (7-18); Bicarbonate 27 mmol/L (21-32); Bilirubin Direct 0.1 mg/dL (0-0.2); Bilirubin Total 0.3 mg/dL (0.2-1.0); Glomerular Filtration Rate 113 ml/min (=/>90); Glucose Level 113 mg/dL (74-106); Potassium 3.4 mmol/L (3.5-5.1); Protein, Total 7.3 g/dL (6.4-8.2); Sodium Level 137 mmol/L (136-145)
[2022-10-18 03:35] LABS: Urine Blood Negative (Negative); Urine Glucose Negative (Negative); Urine Protein Negative (Negative); Urine Specific Gravity 1.025 (1.005-1.030)
[2022-10-18 04:07] LABS: Barbiturates NEGATIVE (NEGATIVE); Benzodiazepines POSITIVE (NEGATIVE); Cocaine NEGATIVE (NEGATIVE); METHAMPHETAM POSITIVE (NEGATIVE); Methadone NEGATIVE (NEGATIVE); Opiates NEGATIVE (NEGATIVE); Phencyclidine NEGATIVE (NEGATIVE); THC Cannibis POSITIVE (NEGATIVE)
[2022-10-18] MEDS ORDERED: POTASSIUM 25 MEQ EFFERV TAB ONE (05:46)
[2022-10-18 10:05] VITALS: TEMP 98.5
[2022-10-18 10:07] VITALS: BP 119/79; O2SAT 95
--- NOTE | 2022-10-19 12:43 | EKG ---
Test Date: 2022-10-18 Test Time: 02:11:42 Analytical Lab Technician: MEASUREMENT RESULTS: Intervals: Rate: 87 PA: 168 QRSD: 90 QT: 370 QTc: 445 [place]: P: 62 PA: 168 QRS: 65 T: 85 INTERPRETIVE STATEMENTS: Normal sinus rhythm Nonspecific T wave abnormality Abnormal ECG Compared to ECG 06/05/2022 09:19:02 No significant changes Electronically Signed On 10-19-22 12:40:00 CDT by Jose Jimenez
--- NOTE | 2022-10-29 17:01 | ER ---
Nurse's Notes [facility] Name: Lamine Reese Age: 37 yrs Sex: Male : 1985 Arrival Date: 10/18/2022 Time: 02:48 Bed 17 Private MD: Diagnosis: Other psychoactive substance abuse;Abuse of other non-psychoactive substances;Hypokalemia;Adverse effect of amphetamines Presentation: 10/18 02:48 Chief complaint: EMS states: Pt states girlfriend broke up with him so he took 1 ll3 Oxy/Percocet, pt is lethargic upon arrival, pt denies being suicidal. Coronavirus screen: Vaccine status: Patient reports receiving the 2nd dose of the covid vaccine. At this time, the client does not indicate any symptoms associated with coronavirus-19. Ebola Screen: No symptoms or risks identified at this time. Initial Sepsis Screen: Does the patient meet any 2 criteria? No. Patient's initial sepsis screen is negative. Does the patient have a suspected source of infection? No. Patient's initial sepsis screen is negative. Risk Assessment: Do you want to hurt yourself or someone else? Patient reports no desire to harm self or others. Onset of symptoms was October 18, 2022 at 01:30. Care prior to arrival: IV initiated. 20 GA, in the left antecubital area. 02:48 Method Of Arrival: EMS: [facility] 3 02:48 Acuity: DEA 3 ll3 Triage Assessment: 02:52 General: Appears in no apparent distress. comfortable, Behavior is cooperative, drowsy, ll3 flat. Pain: Denies pain. Neuro: Level of Consciousness is awake, alert, obeys commands, Oriented to person, place, time, situation. Respiratory: Respiratory effort is even, unlabored, Respiratory pattern is regular, symmetrical. Derm: Skin is pink, warm \T\ dry. Historical: - Allergies: 02:52 Sulfa (Sulfonamide Antibiotics); ll3 - Home Meds: 02:52 lisinopril Oral [Active]; ll3 - PMHx: 02:52 Hypertensive disorder; ll3 - PSHx: 02:52 None; ll3 - Immunization history:: Client reports receiving the 2nd dose of the Covid vaccine. - Social history:: Smoking status: Patient reports the use of cigarette tobacco products, smokes one-half pack cigarettes per day. Screenin:05 [facility] ED Fall Risk Assessment (Adult) Score/Fall Risk Level 0 - 2 = Low Risk. Abuse as6 screen: Denies threats or abuse. Denies injuries from another. Nutritional screening: No deficits noted. Tuberculosis screening: No symptoms or risk factors identified. Assessment: 02:55 General: See triage assessment. ll3 05:05 General: pt sleeping at this time. discharge pending pt become more alert . as6 Vital Signs: 02:48 BP 136 / 91; Pulse 95; Resp 16; Temp 98.5(O); Pulse Ox 97% on R/A; Weight 58.97 kg (R); ll3 Height 6 ft. 3 in. (R); 05:04 BP 119 / 79; Pulse 87; Resp 15 S; Pulse Ox 95% on R/A; as6 02:48 Body Mass Index 16.25 (58.97 kg, 190.5 cm) ll3 ED Course: 02:48 Patient arrived in ED. ll3 02:52 Triage completed. ll3 02:52 Rancho Avilez MD is Attending Physician. nhan 02:52 Arm band placed on Patient placed in an exam room, on a stretcher, on pulse oximetry. ll3 03:36 Urine Drug Screen Sent. rv1 04:41 Doug Garcia MD is Referral Physician. nhan 05:05 Bed in low position. Call light in reach. Side rails up X2. as6 05:05 No provider procedures requiring assistance completed. as6 09:11 Zayra Tran, RN is Primary Nurse. kr3 09:23 IV discontinued, intact, bleeding controlled, No redness/swelling at site. Pressure kr3 dressing applied. Administered Medications: 03:16 Drug: NS 0.9% IV 1000 ml Route: IV; Rate: 1 bolus; Site: left antecubital; ll3 09:24 Follow up: Response: No adverse reaction; IV Status: Completed infusion; IV Intake: kr3 1000ml 08:44 Drug: Potassium PO Effervescent Tablet 25 mEq Route: PO; kr3 09:23 Follow up: Response: No adverse reaction kr3 Medication: 05:05 VIS not applicable for this client. as6 Intake: 09:24 IV: 1000ml; Total: 1000ml. kr3 Outcome: 04:42 Discharge ordered by . nhan 09:11 Patient left the ED. kr3 09:12 Discharged to home ambulatory. kr3 09:12 Condition: stable 09:12 Discharge instructions given to patient, Instructed on discharge instructions, follow up and referral plans. Demonstrated understanding of instructions, follow-up care. Signatures: Rancho Avilez MD MD cha Slawson, Ashby RN RN as6 Quoc Hayward RN RN ll3 Zayra Tran RN RN kr3 Elena Lopez 1
--- NOTE | 2022-10-29 17:01 | EDPHYS ---
Physician Documentation [facility] Name: Lamine Reese Age: 37 yrs Sex: Male : 1985 Arrival Date: 10/18/2022 Time: 02:48 Bed 17 Private MD: ED Physician Rancho Avilez HPI: 10/18 03:34 This 37 yrs old Male presents to ER via EMS with complaints of taking pills. nhan 03:34 The patient presents with confusion. Onset: The symptoms/episode began/occurred just nhan prior to arrival. Possible causes: CVA or TIA, alcohol, head injury, low blood sugar. Associated signs and symptoms: Pertinent positives: lightheadedness, weakness. Current symptoms: In the emergency department the patient's symptoms are unchanged from the initial presentation, despite home interventions. Patient's baseline: Neuro: alert and fully oriented. The patient has experienced similar episodes in the past, several times. Historical: - Allergies: 02:52 Sulfa (Sulfonamide Antibiotics); ll3 - Home Meds: 02:52 lisinopril Oral [Active]; ll3 - PMHx: 02:52 Hypertensive disorder; ll3 - PSHx: 02:52 None; ll3 - Immunization history:: Client reports receiving the 2nd dose of the Covid vaccine. - Social history:: Smoking status: Patient reports the use of cigarette tobacco products, smokes one-half pack cigarettes per day. ROS: 03:36 Constitutional: Negative for fever, chills, and weight loss, Eyes: Negative for injury, nhan pain, redness, and discharge, ENT: Negative for injury, pain, and discharge, Neck: Negative for injury, pain, and swelling, Cardiovascular: Negative for chest pain, palpitations, and edema, Respiratory: Negative for shortness of breath, cough, wheezing, and pleuritic chest pain, Abdomen/GI: Negative for abdominal pain, nausea, vomiting, diarrhea, and constipation, Back: Negative for injury and pain, : Negative for injury, bleeding, discharge, and swelling, MS/Extremity: Negative for injury and deformity, Skin: Negative for injury, rash, and discoloration, Psych: Negative for depression, anxiety, suicide ideation, homicidal ideation, and hallucinations, Allergy/Immunology: Negative for hives, rash, and allergies, Endocrine: Negative for neck swelling, polydipsia, polyuria, polyphagia, and marked weight changes. 03:36 Neuro: Positive for altered mental status, weakness. 03:36 Psych: Negative for depression, auditory hallucinations, visual hallucinations, homicidal ideation, suicide gesture, suicidal ideation. Exam: 03:36 Constitutional: This is a well developed, well nourished patient who is awake, alert, nhan and in no acute distress. Head/Face: Normocephalic, atraumatic. Eyes: Pupils equal round and reactive to light, extra-ocular motions intact. Lids and lashes normal. Conjunctiva and sclera are non-icteric and not injected. Cornea within normal limits. Periorbital areas with no swelling, redness, or edema. ENT: Nares patent. No nasal discharge, no septal abnormalities noted. Tympanic membranes are normal and external auditory canals are clear. Oropharynx with no redness, swelling, or masses, exudates, or evidence of obstruction, uvula midline. Mucous membranes moist. Neck: Trachea midline, no thyromegaly or masses palpated, and no cervical lymphadenopathy. Supple, full range of motion without nuchal rigidity, or vertebral point tenderness. No Meningismus. Chest/axilla: Normal chest wall appearance and motion. Nontender with no deformity. No lesions are appreciated. Cardiovascular: Regular rate and rhythm with a normal S1 and S2. No gallops, murmurs, or rubs. Normal PMI, no JVD. No pulse deficits. Respiratory: Lungs have equal breath sounds bilaterally, clear to auscultation and percussion. No rales, rhonchi or wheezes noted. No increased work of breathing, no retractions or nasal flaring. Abdomen/GI: Soft, non-tender, with normal bowel sounds. No distension or tympany. No guarding or rebound. No evidence of tenderness throughout. Back: No spinal tenderness. No costovertebral tenderness. Full range of motion. Male : Normal genitalia with no discharge or lesions. Skin: Warm, dry with normal turgor. Normal color with no rashes, no lesions, and no evidence of cellulitis. MS/ Extremity: Pulses equal, no cyanosis. Neurovascular intact. Full, normal range of motion. Psych: Awake, alert, with orientation to person, place and time. Behavior, mood, and affect are within normal limits. 03:36 Neuro: Orientation: unable to test, the patient is clinically intoxicated, Mentation: slow to respond, confused, Memory: unable to test, the patient is clinically intoxicated, Cranial nerves: grossly normal, is grossly normal based on the patient's age, Cerebellar function: is grossly normal, is grossly normal based on the patient's age, Motor: moves all fours, strength is normal, strength is 5/5 in all extremities, Sensation: is normal, appropriate no acute changes, Gait: not tested. Deep tendon reflexes are 2+ (normal) in the bilateral brachioradialis, bicep, tricep and patellar and Achilles tendons, seizure activity, is not displayed by the patient. 03:42 ECG was reviewed by the Attending Physician. nhan Vital Signs: 02:48 BP 136 / 91; Pulse 95; Resp 16; Temp 98.5(O); Pulse Ox 97% on R/A; Weight 58.97 kg (R); ll3 Height 6 ft. 3 in. (R); 05:04 BP 119 / 79; Pulse 87; Resp 15 S; Pulse Ox 95% on R/A; as6 02:48 Body Mass Index 16.25 (58.97 kg, 190.5 cm) ll3 MDM: 02:53 Patient medically screened. nhan 03:38 Differential diagnosis: Ingestion/exposure to percocet polypharmacy, over medication, nhan hypoglycemia. Differential Diagnosis altered mental status. Data reviewed: vital signs, nurses notes, lab test result(s), EKG. Consideration of Admission/Observation Escalation of care including admission/observation considered. I considered the following discharge prescriptions or medication management in the emergency department Medications were administered in the Emergency Department. See MAR. Test considered but Not performed: CT: ct head. 10/18 02:53 Order name: Acetaminophen; Complete Time: 04:40 nhan 10/18 02:53 Order name: Basic Metabolic Panel; Complete Time: 04:40 [facility] 10/18 02:53 Order name: CBC with Diff; Complete Time: 03:33 nhan 10/18 02:53 Order name: ETOH Level; Complete Time: 03:33 10/18 02:53 Order name: Hepatic Function; Complete Time: 04:40 [facility] 10/18 02:53 Order name: PT-INR; Complete Time: 03:33 10/18 02:53 Order name: Ptt, Activated; Complete Time: 03:33 10/18 02:53 Order name: Salicylate; Complete Time: 04:40 nhan 10/18 02:53 Order name: Urine Drug Screen; Complete Time: 04:40 [facility] 10/18 03:35 Order name: Urine Dipstick-Ancillary; Complete Time: 04:40 EDMS 10/18 02:53 Order name: EKG; Complete Time: 02:53 [facility] 10/18 02:53 Order name: EKG - Nurse/Tech; Complete Time: 03:14 [facility] 10/18 02:53 Order name: IV Saline Lock; Complete Time: 03:12 [facility] 10/18 02:53 Order name: Labs collected and sent; Complete Time: 03:12 [facility] 10/18 02:53 Order name: Suicide Screening ([place]); Complete Time: 09:24 [facility] 10/18 02:53 Order name: Urine Dipstick-Ancillary (obtain specimen); Complete Time: 03:36 [facility] 10/18 04:41 Order name: PO challenge: juice; Complete Time: 08:45 [facility] EC:42 Rate is 87 beats/min. Rhythm is regular. QRS [place] is Normal. [place] interval is normal. QRS nhan interval is normal. QT interval is normal. No Q waves. T waves are Normal. Clinical impression: NSR w/ Non-specific ST/T Changes and No evidence of ischemia. Interpreted by me. Reviewed by me. Administered Medications: 03:16 Drug: NS 0.9% IV 1000 ml Route: IV; Rate: 1 bolus; Site: left antecubital; ll3 09:24 Follow up: Response: No adverse reaction; IV Status: Completed infusion; IV Intake: kr3 1000ml 08:44 Drug: Potassium PO Effervescent Tablet 25 mEq Route: PO; kr3 09:23 Follow up: Response: No adverse reaction kr3 Disposition Summary: 10/18/22 04:42 Discharge Ordered Location: Home nhan Problem: new nhan Symptoms: have improved nhan Condition: Stable nhan Diagnosis - Other psychoactive substance abuse nhan - Abuse of other non-psychoactive substances nhan - Hypokalemia nhan - Adverse effect of amphetamines nhan Followup: nhan - With: Private Physician - When: 2 - 3 days - Reason: Recheck today's complaints, Continuance of care, Re-evaluation by your physician Followup: nhan - With: Doug Garcia MD - When: 2 - 3 days - Reason: Recheck today's complaints, Continuance of care, Re-evaluation by your physician Discharge Instructions: - Discharge Summary Sheet nhan - Finding Treatment for Addiction nhan - Potassium Content of Foods nhan - Substance Use Disorder nhan - Supporting Someone With an Addiction nhan - Hypokalemia nhan - Substance Use Disorder and Mental Illness nhan - Illegal Drug Use Information, Adult nhan - Supporting Someone With Substance Use Disorder nhan Forms: - Medication Reconciliation Form nhan - Thank You Letter nhan - Antibiotic Education nhan - Prescription Opioid Use nhan Signatures: Dispatcher [employer] EDRancho Rangel MD MD cha Loubet, Lynsea, RN RN ll3 Zayra Tran RN RN kr3
== END 2022-10-18 09:11 | disposition home or self-care (01) ==
LOC: ER 02:47
DX: F19.10 Other psychoactive substance abuse, uncomplicated (principal); F15.10 Other stimulant abuse, uncomplicated; E87.6 Hypokalemia
CPT/HCPCS: 36415; 80048; 80076; 80307; 81003; 85025; 85610; 85730; 93005; 96360; 96361; 99284; G0480; J7030

== ENCOUNTER 2022-11-30 14:48 | Emergency (ER) | payer SELFPAY ==
--- NOTE | 2022-11-30 15:37 | RAD REPORT ---
EXAM DESCRIPTION: CT - [id number] - 11/30/2022 3:23 pm CLINICAL HISTORY: Trauma, head and neck injury. TRAUMA COMPARISON: <Comparisons> TECHNIQUE: Axial 5 mm thick images of the head were obtained. Axial 2 mm thick images of the cervical spine were obtained with sagittal and coronal reconstruction images generated and reviewed. All CT scans are performed using dose optimization technique as appropriate and may include automated exposure control or mA/KV adjustment according to patient size. FINDINGS: CT HEAD WITHOUT CONTRAST: No acute hemorrhage, hydrocephalus or extra-axial collection is identified.No areas of brain edema or midline shift. The paranasal sinuses and mastoids are clear.The calvarium is intact. CT CERVICAL SPINE WITHOUT CONTRAST: No fracture or subluxation.No prevertebral soft tissues swelling is identified. IMPRESSION: No acute intracranial or cervical spine findings.
--- NOTE | 2022-11-30 16:26 | RAD REPORT ---
EXAM DESCRIPTION: RAD - Chest Single View - 11/30/2022 4:00 pm CLINICAL HISTORY: CHEST PAIN Chest pain. COMPARISON: Chest Single View dated 06/05/2022; Chest Single View dated 06/04/2022; Chest Single Vie w dated 06/04/2022 FINDINGS: Portable technique limits examination quality. The lungs are grossly clear. The heart is normal in size. No displaced fractures. IMPRESSION: No acute intrathoracic process suspected.
[2022-11-30 17:31] LABS: Absolute Lymphocytes (CBC) 1.6 K/uL (0.7-4.9); Hematocrit 42.1 % (39.6-49.0); Lymphocytes % 24.8 % (15.3-44.8); MCV 88.1 fL (80-100); MPV 8.2 fL (7.6-11.3); RBC Red Blood Cell Count 4.79 M/uL (4.33-5.43)
[2022-11-30 18:55] LABS: Potassium 3.4 mEq/L (3.5-5.1); Troponin High Sensitivity 4.3 pg/mL (<58.9)
--- NOTE | 2022-11-30 19:00 | EDPHYS ---
Physician Documentation [facility] Name: Lamine Reese Age: 37 yrs Sex: Male : 1985 Arrival Date: 11/30/2022 Time: 14:48 Bed 18 Private MD: ED Physician Loyd Rollins HPI: 11/30 15:35 This 37 yrs old Male presents to ER via [employer] with complaints of Fall Injury, jh7 Chest Pain. 15:35 Details of fall: The patient fell from seated position, bench. jh7 15:35 Onset: The symptoms/episode began/occurred acutely. Associated injuries: The patient jh7 sustained injury to the head, pain. 37-year-old female reports chest pain starting this morning. He also reports that he was sitting on a bench recently and fell and hit his head. Denies LOC, syncope, or visual changes.. Historical: - Allergies: 15:33 Sulfa (Sulfonamide Antibiotics); ap3 - PMHx: 15:33 Hypertensive disorder; ap3 - Immunization history:: Client reports receiving the 2nd dose of the Covid vaccine. - Social history:: Smoking status: Patient reports use of chewing tobacco. Patient uses street drugs, marijuana. ROS: 15:35 Constitutional: Negative for fever, chills, and weight loss, Eyes: Negative for injury, jh7 pain, redness, and discharge, Neck: Negative for injury, pain, and swelling, Cardiovascular: Negative for chest pain, palpitations, and edema, Respiratory: Negative for shortness of breath, cough, wheezing, and pleuritic chest pain, Abdomen/GI: Negative for abdominal pain, nausea, vomiting, diarrhea, and constipation, Back: Negative for injury and pain, MS/Extremity: Negative for injury and deformity, Skin: Negative for injury, rash, and discoloration. 15:35 Cardiovascular: Positive for chest pain. 15:35 Neuro: Positive for headache, Negative for altered mental status, dizziness, syncope, visual changes, weakness. 15:35 All other systems are negative. Exam: 15:35 Constitutional: This is a well developed, well nourished patient who is awake, alert, jh7 and in no acute distress. Head/Face: Normocephalic, atraumatic. Eyes: Pupils equal round and reactive to light, extra-ocular motions intact. Lids and lashes normal. Conjunctiva and sclera are non-icteric and not injected. Cornea within normal limits. Periorbital areas with no swelling, redness, or edema. Neck: Trachea midline, no thyromegaly or masses palpated, and no cervical lymphadenopathy. Supple, full range of motion without nuchal rigidity, or vertebral point tenderness. No Meningismus. Cardiovascular: Regular rate and rhythm with a normal S1 and S2. No gallops, murmurs, or rubs. Normal PMI, no JVD. No pulse deficits. Respiratory: Lungs have equal breath sounds bilaterally, clear to auscultation and percussion. No rales, rhonchi or wheezes noted. No increased work of breathing, no retractions or nasal flaring. Back: No spinal tenderness. No costovertebral tenderness. Full range of motion. Skin: Warm, dry with normal turgor. Normal color with no rashes, no lesions, and no evidence of cellulitis. MS/ Extremity: Pulses equal, no cyanosis. Neurovascular intact. Full, normal range of motion. Neuro: Awake and alert, GCS 15, oriented to person, place, time, and situation. Motor strength 5/5 in all extremities. Sensory grossly intact. Normal gait. Vital Signs: 15:31 BP 147 / 90; Pulse 80; Resp 17; Temp 97.4; Pulse Ox 100% ; Weight 104.33 kg; Height 6 ap3 ft. 3 in. ; Pain 2/10; 17:45 BP 136 / 88; Pulse 78; Resp 18; Pulse Ox 99% on R/A; ko1 19:15 BP 131 / 89; Pulse 72; Resp 17; Pulse Ox 99% ; jj7 15:31 Body Mass Index 28.75 (104.33 kg, 190.5 cm) ap3 15:31 Pain Scale: Adult ap3 MDM: 14:56 Patient medically screened. [facility] 19:00 Differential diagnosis: closed head injury, contusion, Chest wall pain. Data reviewed: [facility] vital signs, nurses notes, lab test result(s), EKG, radiologic studies, plain films. Independent interpretation of the following test(s) in the Emergency Department EKG: See my EKG interpretation above. Historians other than the Patient: Law enforcement: PD. Care significantly affected by the following chronic conditions: Hypertension. Counseling: I had a detailed discussion with the patient and/or guardian regarding: the historical points, exam findings, and any diagnostic results supporting the discharge/admit diagnosis, to return to the emergency department if symptoms worsen or persist or if there are any questions or concerns that arise at home. 19:00 Scoring Tools HEART Score: Total Score = 1. [facility] 11/30 15:01 Order name: Basic Metabolic Panel; Complete Time: 18:58 [facility] 11/30 15:01 Order name: CBC with Diff; Complete Time: 18:18 [facility] 11/30 15:01 Order name: Troponin HS; Complete Time: 18:58 [facility] 11/30 15:01 Order name: XRAY Chest (1 view); Complete Time: 16:49 [facility] 11/30 15:01 Order name: CT Head C Spine; Complete Time: 16:49 [facility] 11/30 15:01 Order name: EKG; Complete Time: 15:01 [facility] 11/30 15:01 Order name: Cardiac monitoring; Complete Time: 18:45 [facility] 11/30 15:01 Order name: EKG - Nurse/Tech; Complete Time: 17:28 [facility] 11/30 15:01 Order name: IV Saline Lock; Complete Time: 17:28 [facility] 11/30 15:01 Order name: Labs collected and sent; Complete Time: 17:28 [facility] 11/30 15:01 Order name: O2 Per Protocol; Complete Time: 17:28 [facility] 11/30 15:01 Order name: O2 Sat Monitoring; Complete Time: 17:28 EC:30 Rate is 52 beats/min. Rhythm is regular. QRS interval is normal at 88 msec. QT interval [facility] is normal at 400 msec. No Q waves. T waves are Normal. No ST changes noted. Clinical impression: Sinus bradycardia. Administered Medications: No medications were administered Disposition: 12/01 17:15 Co-signature as Attending Physician, Loyd Rollins MD I reviewed the patient's care rn provided by the Advanced Practice Provider and agree with the diagnosis and treatment plan. Disposition Summary: 11/30/22 18:59 Discharge Ordered Location: Home [facility] Problem: new [facility] Symptoms: are unchanged [facility] Condition: Stable [facility] Diagnosis - Unspecified injury of head, initial encounter [facility] - Chest pain, unspecified [facility] Followup: [facility] - With: Private Physician - When: 2 - 3 days - Reason: Recheck today's complaints Discharge Instructions: - Discharge Summary Sheet jh7 - Nonspecific Chest Pain, Adult jh7 - Chest Wall Pain 7 - Electrocardiogram jh7 - Head Injury, Adult [facility] Forms: - Medication Reconciliation Form [facility] - Thank You Letter [facility] Signatures: Dispatcher [employer] Loyd Kennedy MD MD rn Prokisch, Amanda, RN RN ap3 Roseann Huerta FNP [place] [id number] Corrections: (The following items were deleted from the chart) 11/30 15:34 15:33 Home Meds: lisinopril Oral; ap3 ap3 18:55 15:35 Details of fall: The patient fell from seated position, bench, [place] [id number]
--- NOTE | 2022-11-30 19:00 | ER ---
Nurse's Notes [facility] Name: Lamine Reese Age: 37 yrs Sex: Male : 1985 Arrival Date: 11/30/2022 Time: 14:48 Bed 18 Private MD: Diagnosis: Unspecified injury of head, initial encounter;Chest pain, unspecified Presentation: 11/30 15:31 Chief complaint: Patient states: he started having chest pain, then fell off of a bench ap3 onto tile floor. Patient denies any LOC during this time. Patient denies any Nausea or vomiting as well. Coronavirus screen: At this time, the client does not indicate any symptoms associated with coronavirus-19. Ebola Screen: No symptoms or risks identified at this time. Initial Sepsis Screen: Does the patient meet any 2 criteria? No. Patient's initial sepsis screen is negative. Does the patient have a suspected source of infection? No. Patient's initial sepsis screen is negative. Risk Assessment: Do you want to hurt yourself or someone else? Patient reports no desire to harm self or others. Onset of symptoms was November 30, 2022. 15:31 Method Of Arrival: Law Enforcement: [place] ap3 15:31 Acuity: DEA 3 ap3 Triage Assessment: 15:34 General: Appears in no apparent distress. Behavior is calm, cooperative, appropriate ap3 for age. Pain: Complains of pain in anterior aspect of left upper chest Pain currently is 2 out of 10 on a pain scale. at worst was 7 out of 10 on a pain scale. Neuro: Level of Consciousness is awake, alert, obeys commands, Oriented to person, place, time, situation. Cardiovascular: Reports chest pain, lightheadedness. Respiratory: Airway is patent Respiratory effort is even, unlabored, Respiratory pattern is regular, symmetrical. Historical: - Allergies: 15:33 Sulfa (Sulfonamide Antibiotics); ap3 - PMHx: 15:33 Hypertensive disorder; ap3 - Immunization history:: Client reports receiving the 2nd dose of the Covid vaccine. - Social history:: Smoking status: Patient reports use of chewing tobacco. Patient uses street drugs, marijuana. Screenin:35 Abuse screen: Denies threats or abuse. Nutritional screening: No deficits noted. ap3 Tuberculosis screening: No symptoms or risk factors identified. 17:45 [facility] ED Fall Risk Assessment (Adult) History of falling in the last 3 months, ko1 including since admission Yes- single mechanical fall (1 pt) Confusion or Disorientation No (0 pts) Intoxicated or Sedated No (0 pts) Impaired Gait No (0 pts) Mobility Assist Device Used No (0 pt) Altered Elimination No (0 pt) Score/Fall Risk Level 0 - 2 = Low Risk Oriented to surroundings, Maintained a safe environment, Educated pt \T\ family on fall prevention, incl call for assistance when getting out of bed, Assessed \T\ reinforced patient's understanding of fall precautions, Provided non-skid footwear, Hourly rounding (assess needs \T\ fall precautionary measures) done, Used ambulatory aids as needed (educated on \T\ assisted with), Used gait belt as appropriate. Assessment: 17:30 General: Appears in no apparent distress. comfortable, Behavior is calm, cooperative, ko1 appropriate for age. Pain: Complains of pain in chest and anterior aspect of left upper chest. Neuro: No deficits noted. Cardiovascular: No deficits noted. Respiratory: No deficits noted. GI: No deficits noted. : No deficits noted. EENT: No deficits noted. Derm: No deficits noted. Musculoskeletal: No deficits noted. Vital Signs: 15:31 BP 147 / 90; Pulse 80; Resp 17; Temp 97.4; Pulse Ox 100% ; Weight 104.33 kg; Height 6 ap3 ft. 3 in. ; Pain 2/10; 17:45 BP 136 / 88; Pulse 78; Resp 18; Pulse Ox 99% on R/A; ko1 19:15 BP 131 / 89; Pulse 72; Resp 17; Pulse Ox 99% ; jj7 15:31 Body Mass Index 28.75 (104.33 kg, 190.5 cm) ap3 15:31 Pain Scale: Adult ap3 ED Course: 14:49 Patient arrived in ED. mr 14:56 [facility]. jh7 14:56 Loyd Rollins MD is Attending Physician. jh7 15:25 CT Head C Spine In Process Unspecified. EDMS 15:33 Triage completed. ap3 15:35 Arm band placed on right wrist. ap3 15:35 Patient has correct armband on for positive identification. Adult w/ patient. officer ap3 remains with patient. 16:02 XRAY Chest (1 view) In Process Unspecified. EDMS 17:28 Basic Metabolic Panel Sent. mb9 17:28 CBC with Diff Sent. mb9 17:28 Troponin HS Sent. mb9 17:28 EKG done, by ED staff, reviewed by Roseann MULLIGAN. Inserted saline lock: 18 gauge mb9 in left antecubital area, using aseptic technique. 17:44 Judit Ahuja, RN is Primary Nurse. ko1 17:45 Pulse ox on. NIBP on. kearny military police officer at bedside. Warm blanket given. ko1 18:53 Awaiting lab results. ko1 19:12 No provider procedures requiring assistance completed. IV discontinued, intact, jj7 bleeding controlled, No redness/swelling at site. Pressure dressing applied. Administered Medications: No medications were administered Medication: 17:45 VIS not applicable for this client. ko1 Outcome: 18:59 Discharge ordered by . marie 19:12 Discharged to Law Enforcement jj7 19:12 Condition: good 19:12 Discharge instructions given to patient, police, Instructed on discharge instructions, Demonstrated understanding of instructions. 19:18 Patient left the ED. jj7 Signatures: Dispatcher [employer] EDCO Reji Luna LuuWilma, RN RN Roseann Souza FNP FNP Judit Armendariz, RN RN Trey Chacon RN ANDRES jLuna Hernandez, RN RN [email or web address] Corrections: (The following items were deleted from the chart) 15:34 15:33 Home Meds: lisinopril Oral; ap3 ap3
[2022-11-30 20:51] VITALS: TEMP 97.4
[2022-11-30 21:01] VITALS: O2SAT 99
[2022-11-30 21:02] VITALS: BP 131/89
--- NOTE | 2022-12-01 16:47 | EKG ---
Test Date: 2022-11-30 Test Time: 17:30:47 Wood Bucker: MB MEASUREMENT RESULTS: Intervals: Rate: 52 WI: QRSD: 88 QT: 400 QTc: 372 [place]: P: WI: QRS: 69 T: 40 INTERPRETIVE STATEMENTS: Normal Sinus rhythm normal ECG Electronically Signed On 12-01-22 16:46:15 CDT by Jose Jimenez
--- NOTE | 2022-12-01 16:47 | EKG ---
Test Date: 2022-11-30 Test Time: 22:19:29 Cuff Setter: MB MEASUREMENT RESULTS: Intervals: Rate: 94 SD: 196 QRSD: 82 QT: 330 QTc: 412 [place]: P: 48 SD: 196 QRS: 55 T: 43 INTERPRETIVE STATEMENTS: Normal sinus rhythm Normal ECG Compared to ECG 11/30/2022 17:30:47 Junctional rhythm no longer present Electronically Signed On 12-01-22 16:45:44 CDT by Jose Jimenez
== END 2022-11-30 19:18 | disposition home or self-care (01) ==
LOC: ER 14:48
DX: S09.90XA Unspecified injury of head, initial encounter (principal); R07.9 Chest pain, unspecified
CPT/HCPCS: 36415; 70450; 71045; 72125; 80048; 84484; 85025; 93005; 99284